=== PATIENT | male | born 1980 | race Caucasian/White ===

== ENCOUNTER → 2017-09-17 | Outpatient (CLI) | payer OTHER ==
[~2017-09-17] MED LIST: BECL0.3A INH; CLR10 PO; FLUT0.15 NAE; OMEP20TA PO
== END | disposition home or self-care (01) ==
LOC: C.PATHSPEC 17:41
PROVIDERS: ATTEND Urology
DX: R31.0 Gross hematuria (principal)

== ENCOUNTER 2021-01-24 09:23 | Inpatient (IN) ==
[2021-01-24] MEDS ORDERED: SODIUM CHLORIDE 0.9% 1000ML 1,000 ML IV STA (09:46)
--- NOTE | 2021-01-24 09:54 | Emergency Department Note ---
History of Present Illness General Chief complaint: Shortness of Breath/Dyspnea Stated complaint: COV+,SOB,FEVER,HEADACHE,DEHYDRATION Time Seen by Provider: 01/24/21 09:35 Source: patient Mode of arrival: ambulatory Limitations: no limitations History of Present Illness Maximum Pain Intensity: 8 This patient comes in with shortness of breath body aches headache weakness after being diagnosed with Covid 3 days ago. His symptoms started about 6 days ago. He works in the [employer] and he said multiple people there are sick with Covid .he was tested at [facility] 3 days ago and came back positive he continues to have a hacking cough he short of breath primarily with exertion he is been weak he has had no vomiting. He has had a headache no neck pain or stiffness no rash. He denies pulmonary issues but does have allergies he says and he has butyryl and montelukast listed as medications he has been on. Denies trauma or injury. He has not had the Covid vaccine. Home Medications Medication Instructions Recorded Confirmed Type albuterol sulfate 90 mcg/actuation 2 puffs INH Q4H PRN #8 gm 11/15/20 01/24/21 Rx aerosol inhaler losartan 50 mg tablet 50 mg PO QAM 11/15/20 01/24/21 History montelukast 10 mg tablet 10 mg PO HS 11/15/20 01/24/21 History pantoprazole 40 mg tablet,delayed 40 mg PO QAM 11/15/20 01/24/21 History release simvastatin 20 mg tablet 20 mg PO HS 11/15/20 01/24/21 History albuterol sulfate 0.63 mg/3 mL 0.63 mg INHALATION QID PRN 01/24/21 01/24/21 History solution for nebulization Allergies Allergy/AdvReac Type Severity Reaction Status Date / Time No Known Allergies Allergy Unverified 01/24/21 10:10 Past Med/Surg History Medical History (Updated 01/24/21 @ 14:42 by Andrea Dahl MD) Allergies GERD (gastroesophageal reflux disease) HTN (hypertension) Hyperlipidemia Social History Smoking Status: Never smoker Preferred Language: Tongan Feels Safe at Home: Yes Review of Systems A total of 10 systems reviewed and were otherwise negative Physical Exam Vital Signs Vital Signs - 24 hr 01/24/21 09:30 01/24/21 09:45 01/24/21 09:47 Temperature 38.7 C H Temperature Source Oral Pulse Rate 115 H 107 H 114 H Pulse Rate from SpO2 Sensor 114 H Respiratory Rate 20 22 18 Respiratory Effort / Characteristics Spontaneous Blood Pressure 118/83 124/79 Blood Pressure Mean 94 94 Blood Pressure Position Sitting Pulse Oximetry 89 L 92 92 Oxygen Delivery Method Room Air Nasal Cannula Nasal Cannula Oxygen Flow Rate 2 2 Sepsis Recent Fever Within 48 Hours Yes Sepsis New/Unexplained Change in Mental Status N/A Sepsis Action Taken by Nursing Physician Notified 01/24/21 10:00 01/24/21 10:15 01/24/21 10:30 Temperature Temperature Source Pulse Rate 107 H 107 H 109 H Pulse Rate from SpO2 Sensor 107 H 109 H Respiratory Rate 22 22 23 Respiratory Effort / Characteristics Blood Pressure 143/80 H 155/81 H Blood Pressure Mean 101 105 Blood Pressure Position Pulse Oximetry 96 96 97 Oxygen Delivery Method Nasal Cannula Nasal Cannula Nasal Cannula Oxygen Flow Rate 2.5 2.5 2.5 Sepsis Recent Fever Within 48 Hours Sepsis New/Unexplained Change in Mental Status Sepsis Action Taken by Nursing 01/24/21 11:00 01/24/21 12:45 01/24/21 13:00 Temperature Temperature Source Pulse Rate 103 H 109 H 99 H Pulse Rate from SpO2 Sensor 100 H 110 H 100 H Respiratory Rate 26 H 19 30 H Respiratory Effort / Characteristics Blood Pressure 131/90 142/75 H 119/76 Blood Pressure Mean 103 97 90 Blood Pressure Position Pulse Oximetry 95 93 95 Oxygen Delivery Method Nasal Cannula Nasal Cannula Nasal Cannula Oxygen Flow Rate 2 2 2 Sepsis Recent Fever Within 48 Hours Sepsis New/Unexplained Change in Mental Status Sepsis Action Taken by Nursing 01/24/21 13:15 01/24/21 13:30 01/24/21 13:45 Temperature Temperature Source Pulse Rate 104 H 104 H 101 H Pulse Rate from SpO2 Sensor 104 H 101 H 99 H Respiratory Rate 34 H 22 17 Respiratory Effort / Characteristics Blood Pressure 130/78 126/81 123/78 Blood Pressure Mean 95 96 93 Blood Pressure Position Pulse Oximetry 93 94 93 Oxygen Delivery Method Nasal Cannula Nasal Cannula Nasal Cannula Oxygen Flow Rate 2 2 2 Sepsis Recent Fever Within 48 Hours Sepsis New/Unexplained Change in Mental Status Sepsis Action Taken by Nursing General: Well developed well nourished middle-age male who appears in no acute distress, breathing comfortably on room air. Normal speech HEENT: Normal cephalic atraumatic. Pupils are equal round and reactive to lig ht. Extraocular movements are intact. Oropharynx is pink with moist mucous membranes. No swelling of the mouth lips or tongue. Neck: Supple with a midline trachea. No meningeal signs or stiffness, no JVD or bruits. No Stridor. Chest: Clear to auscultation bilaterally. No wheezes or rhonchi. No increased work of breathing. He has a dry hacking cough Heart: Regular rate and rhythm without murmurs or gallops. Abdomen: Soft nontender, nondistended without rebound guarding or rigidity. Extremities: No cyanosis clubbing or edema. No calf tenderness or assymetry Spine/Back. Non tender to palpation. No CVA tenderness Skin: Good turgor without rashes. Neurologic exam: Cranial nerves two through 12 are intact. Motor and sensation are intact and symmetrical throughout. Course Administered Medications Discontinued Medications Dexamethasone Sodium Phosphate (DexamethasonePf 10 Mg/Ml Vial) 6 mg IV NOW ONE Stop: 01/24/21 11:16 Last Admin: 01/24/21 11:20 Dose: 6 mg Documented by: [id number] Sodium Chloride (Nss 1000ml) 1,000 mls @ 999 mls/hr IV .Q1H1M STA Stop: 01/24/21 10:46 Last Infusion: 01/24/21 11:29 Dose: 0 mls/hr Documented by: [id number] Admin: 01/24/21 10:02 Dose: 999 mls/hr Documented by: [id number] Remdesivir 200 mg/ Sodium (Chloride) 250 mls @ 125 mls/hr IV ONE STA; Protocol Stop: 01/24/21 13:29 Last Admin: 01/24/21 12:44 Dose: 125 mls/hr Documented by: [id number] Ioversol (Optiray 320 125ml) 118 ml IV ONCE ONE Stop: 01/24/21 11:33 Last Admin: 01/24/21 11:33 Dose: 118 ml Documented by: [id number] Ketorolac Tromethamine (Ketorolac Tromethamine 15 Mg/Ml Vial) 10 mg IV NOW ONE Stop: 01/24/21 10:51 Last Admin: 01/24/21 11:18 Dose: 10 mg Documented by: [id number] Potassium Chloride (Potassium Chloride Crtab 20 Meq Tabcr) 40 meq PO NOW STA Stop: 01/24/21 12:08 Last Admin: 01/24/21 12:53 Dose: 40 meq Documented by: [id number] Medical Decision Making Differential Diagnosis Covid, pneumonia, sepsis, CHF, electrolyte or metabolic abnormality, hypoxia Medical Records Attestation: I reviewed the patient's medical records. Home Medications Current Medication List: was personally reviewed by me Laboratory Data Attestation: I reviewed the patient's lab results. Result diagrams: 01/24/21 09:50 01/24/21 09:50 Lab Results 01/24/21 01/24/21 01/24/21 Range/Units 09:50 09:50 09:50 WBC 4.10 L (4.8-10.8) K/uL RBC 5.08 (4.7-6.1) M/uL Hgb 14.7 (14.0-18.0) g/dL Hct 43.8 (42-52) % MCV 86.2 (80-100) fL MCH 28.9 (25-34) pg MCHC 33.6 (32-36) g/dL RDW Std Deviation 44.2 (36.4-46.3) fL RDW Coeff of Ava 13.9 (11.5-14.5) % Plt Count 130 (130-400) K/uL MPV 10.3 (7.4-10.4) fL Immature Gran % (Auto) 0.5 % Neut % (Auto) 80.9 % Lymph % (Auto) 13.7 % Clayton % (Auto) 4.9 % Eos % (Auto) 0.0 % Baso % (Auto) 0.0 % Neut # (Auto) 3.32 (1.4-6.5) K/uL Lymph # (Auto) 0.56 L (1.2-3.4) K/uL Clayton # (Auto) 0.20 (0.11-0.59) K/uL Eos # (Auto) 0.00 (0-0.5) K/uL Baso # (Auto) 0.00 (0-0.2) K/uL Immature Gran # (Auto) 0.02 (0.00-0.02) K/uL PT 9.9 (9.0-12.0) Seconds INR 1.0 (0.9-1.1) APTT 27.1 (21.0-31.0) Seconds PTT Ratio 1.0 D-Dimer 1650 H* (0-500) ug/L FEU Sodium 139 (136-145) mmol/L Potassium 3.4 L (3.5-5.1) mmol/L Chloride 104 (98-107) mmol/L Carbon Dioxide 29 (21-32) mmol/L Anion Gap 6.0 (3-11) BUN 14 (7-18) mg/dl Creatinine 1.27 (0.6-1.4) mg/dl Est Cr Clr Drug Dosing 95.8 ml/min Est GFR ( Amer) 80.8 ml/min Est GFR (Non-Af Amer) 69.7 ml/min BUN/Creatinine Ratio 10.8 (10-20) Glucose 123 H (70-99) mg/dl Calcium 8.2 L (8.5-10.1) mg/dl Ferritin (8-388) ng/ml Total Bilirubin 0.7 (0.2-1) mg/dl AST 66 H (15-37) U/L ALT 37 (12-78) U/L Alkaline Phosphatase 90 (45-117) U/L Lactate Dehydrogenase (87-241) U/L Troponin I < 0.015 (0-0.045) ng/ml C-Reactive Protein (0-0.29) mg/dl Total Protein 7.0 (6.4-8.2) gm/dl Albumin 2.9 L (3.4-5.0) gm/dl Globulin 4.1 H (2.5-4.0) gm/dl Albumin/Globulin Ratio 0.7 L (0.9-2) Lipase 275 (73-393) U/L Procalcitonin (0-0.5) ng/ml COVID-19 Eval Order SARS-CoV-2 (PCR) (Negative) 01/24/21 01/24/21 01/24/21 Range/Units 09:50 09:50 11:26 WBC (4.8-10.8) K/uL RBC (4.7-6.1) M/uL Hgb (14.0-18.0) g/dL Hct (42-52) % MCV (80-100) fL MCH (25-34) pg MCHC (32-36) g/dL RDW Std Deviation (36.4-46.3) fL RDW Coeff of Ava (11.5-14.5) % Plt Count (130-400) K/uL MPV (7.4-10.4) fL Immature Gran % (Auto) % Neut % (Auto) % Lymph % (Auto) % Clayton % (Auto) % Eos % (Auto) % Baso % (Auto) % Neut # (Auto) (1.4-6.5) K/uL Lymph # (Auto) (1.2-3.4) K/uL Clayton # (Auto) (0.11-0.59) K/uL Eos # (Auto) (0-0.5) K/uL Baso # (Auto) (0-0.2) K/uL Immature Gran # (Auto) (0.00-0.02) K/uL PT (9.0-12.0) Seconds INR (0.9-1.1) APTT (21.0-31.0) Seconds PTT Ratio D-Dimer (0-500) ug/L FEU Sodium (136-145) mmol/L Potassium (3.5-5.1) mmol/L Chloride (98-107) mmol/L Carbon Dioxide (21-32) mmol/L Anion Gap (3-11) BUN (7-18) mg/dl Creatinine (0.6-1.4) mg/dl Est Cr Clr Drug Dosing ml/min Est GFR ( Amer) ml/min Est GFR (Non-Af Amer) ml/min BUN/Creatinine Ratio (10-20) Glucose (70-99) mg/dl Calcium (8.5-10.1) mg/dl Ferritin 4479.4 H (8-388) ng/ml Total Bilirubin (0.2-1) mg/dl AST (15-37) U/L ALT (12-78) U/L Alkaline Phosphatase (45-117) U/L Lactate Dehydrogenase (87-241) U/L Troponin I (0-0.045) ng/ml C-Reactive Protein 11.30 H (0-0.29) mg/dl Total Protein (6.4-8.2) gm/dl Albumin (3.4-5.0) gm/dl Globulin (2.5-4.0) gm/dl Albumin/Globulin Ratio (0.9-2) Lipase (73-393) U/L Procalcitonin 0.14 (0-0.5) ng/ml COVID-19 Eval Order Covid19 at [facility] SARS-CoV-2 (PCR) (Negative) 01/24/21 01/24/21 Range/Units 11:26 13:00 WBC (4.8-10.8) K/uL RBC (4.7-6.1) M/uL Hgb (14.0-18.0) g/dL Hct (42-52) % MCV (80-100) fL MCH (25-34) pg MCHC (32-36) g/dL RDW Std Deviation (36.4-46.3) fL RDW Coeff of Ava (11.5-14.5) % Plt Count (130-400) K/uL MPV (7.4-10.4) fL Immature Gran % (Auto) % Neut % (Auto) % Lymph % (Auto) % Clayton % (Auto) % Eos % (Auto) % Baso % (Auto) % Neut # (Auto) (1.4-6.5) K/uL Lymph # (Auto) (1.2-3.4) K/uL Clayton # (Auto) (0.11-0.59) K/uL Eos # (Auto) (0-0.5) K/uL Baso # (Auto) (0-0.2) K/uL Immature Gran # (Auto) (0.00-0.02) K/uL PT (9.0-12.0) Seconds INR (0.9-1.1) APTT (21.0-31.0) Seconds PTT Ratio D-Dimer (0-500) ug/L FEU Sodium (136-145) mmol/L Potassium (3.5-5.1) mmol/L Chloride (98-107) mmol/L Carbon Dioxide (21-32) mmol/L Anion Gap (3-11) BUN (7-18) mg/dl Creatinine (0.6-1.4) mg/dl Est Cr Clr Drug Dosing ml/min Est GFR ( Amer) ml/min Est GFR (Non-Af Amer) ml/min BUN/Creatinine Ratio (10-20) Glucose (70-99) mg/dl Calcium (8.5-10.1) mg/dl Ferritin (8-388) ng/ml Total Bilirubin (0.2-1) mg/dl AST (15-37) U/L ALT (12-78) U/L Alkaline Phosphatase (45-117) U/L Lactate Dehydrogenase 522 H (87-241) U/L Troponin I (0-0.045) ng/ml C-Reactive Protein (0-0.29) mg/dl Total Protein (6.4-8.2) gm/dl Albumin (3.4-5.0) gm/dl Globulin (2.5-4.0) gm/dl Albumin/Globulin Ratio (0.9-2) Lipase (73-393) U/L Procalcitonin (0-0.5) ng/ml COVID-19 Eval Order SARS-CoV-2 (PCR) POSITIVE A* (Negative) Imaging Data Attestation: I personally reviewed and interpreted this imaging study as follows: My Impression: Chest x-rayhe has bilateral haziness in the bases consistent with Covid infection Radiologist's Impression: Chest X-Ray 01/24/21 09:41 XR chest 1V portable INDICATION: MN ^SOB. TECHNIQUE: Single frontal radiograph of the chest was obtained. Comparison: Comparison is made to chest one view 11/15/2020 FINDINGS: No lines and tubes are seen. The cardiomediastinal silhouette is normal. Lungs are underinflated. Diffuse airspace opacities are seen. No evidence of pleural effusion or pneumothorax. IMPRESSION: Diffuse bilateral airspace opacities which are favored to represent pneumonia with or without aspiration/atelectasis. ACT 112: Negative or not required by law. Electronically signed by: Diaz Rodriguez M.D. 01/24/2021 10:26 AM Chest CTA 01/24/21 10:52 CT angio chest PE protocol INDICATION: MN ^A10 +COVID 01/21 ^PE. TECHNIQUE: Multidetector row helical CT of the chest was performed. Coronal and sagittal reformations were obtained. Automated dose lowering techniques and/or adjustment according to patient size were utilized for this exam. Comparison: Comparison is made to CT chest PE protocol 11/15/2020 FINDINGS: Lungs and pleura: Interval development of diffuse groundglass and consolidative opacities throughout the lung in this patient with viral pneumonia. Heart and pericardium: Heart size is normal. No pericardial effusion. Vessels: No evidence of pulmonary embolism. Mediastinum and marily: Unremarkable. Chest wall and lower neck: Unremarkable. Abdomen: Unremarkable. Bones: Unremarkable. IMPRESSION: Bilateral groundglass and consolidative opacities compatible with history of viral pneumonia. No evidence of pulmonary embolism. ACT 112: Negative or not required by law. Electronically signed by: Diaz Rodriguez M.D. 01/24/2021 12:00 PM ECG Data Attestation: I personally reviewed and interpreted this ECG as follows: Indication: + SOB/dyspnea Rate (beats per minute): 116 Rhythm: + sinus tachycardia ECG Intervals/blocks: + Normal QRS, + Normal QT and + Normal [place] ECG [place]: + Normal ECG ST segments: + Normal ST segments ECG Findings: no PACs or no PVCs Comparison ECG Date: from (11/15/20) Change: no significant change MDM Narrative This patient comes in after being diagnosed with Covid 3 days ago he week he has a headache and shortness of breath he is hypoxemic with 88% on room air he was placed on oxygen. IV asked established and he was hydrated with IV normal saline. He was placed on a shipping and receiving assistant. EKG and multiple blood testing was obtained including D-dimer. He was reassessed frequently. Chest x-ray shows bilateral infiltrates consistent with Covid. Covid testing was positive here as well. He has no significant electrolyte or metabolic abnormalities. There is nothing to suggest a bacterial infection. D-dimer was elevated and in light of this I did do a chest CT. There is no evidence of PE. There are findings cons istent with Covid with groundglass. Given his hypoxemia I do think he needs to be admitted for further treatment and evaluation. I have consulted the [facility] hospitalist to see him for these measures Continous shipping and receiving assistant: Orders placed in EMR for continuous shipping and receiving assistant. Upon my interpretation he was noted to be in sinus tachycardia with a rate of 115 Impression & Plan COVID, Hypoxemia, Dehydration, Elevated d-dimer Discharge Plan Visit Data Chief Complaint: Shortness of Breath/Dyspnea Stated Complaint: COV+,SOB,FEVER,HEADACHE,DEHYDRATION ED Provider: Andrea Dahl Discharge Problem: COVID, Hypoxemia, Dehydration, Elevated d-dimer Forms Stand Alone Forms: My [facility] Prescriptions Prescriptions: No Action losartan 50 mg tablet 50 mg PO QAM RF: 0 pantoprazole 40 mg tablet,delayed release (DR/EC) 40 mg PO QAM RF: 0 simvastatin 20 mg tablet 20 mg PO HS RF: 0 montelukast 10 mg tablet 10 mg PO HS RF: 0 albuterol sulfate 90 mcg/actuation HFA aerosol inhaler 2 puffs INH Q4H PRN (Reason: shortness of breath or wheezing) Qty: 8 RF: 0 albuterol sulfate 0.63 mg/3 mL Solution For Nebulization 0.63 mg INHALATION QID PRN (Reason: SOB) RF: 0 Referrals Referrals: Guero Huerta MD [Primary Care Provider] -
[2021-01-24 10:15] LABS: Hematocrit (blood only) 43.8 % (42-52); Hemoglobin 14.7 g/dL (14.0-18.0); Immature Granulocytes # (auto) 0.02 K/uL (0.00-0.02); Immature Granulocytes % (auto) 0.5 %; Lymphocytes # (auto) 0.56 K/uL (1.2-3.4); Lymphocytes % (auto) 13.7 %; Mean Corpuscular Hemoglobin 28.9 pg (25-34); Mean Corpuscular Hgb Conc 33.6 g/dL (32-36); Mean Corpuscular Volume 86.2 fL (80-100); Mean Platelet Volume 10.3 fL (7.4-10.4); Monocytes % (auto) 4.9 %; Neutrophils # (auto) 3.32 K/uL (1.4-6.5); Neutrophils % (auto) 80.9 %; Platelet Count 130 K/uL (130-400); RDW Coefficient of Variation 13.9 % (11.5-14.5); RDW Standard Deviation 44.2 fL (36.4-46.3); Red Blood Count 5.08 M/uL (4.7-6.1)
--- NOTE | 2021-01-24 10:27 | XRay Report ---
XR chest 1V portable INDICATION: MN ^SOB. TECHNIQUE: Single frontal radiograph of the chest was obtained. Comparison: Comparison is made to chest one view 11/15/2020 FINDINGS: No lines and tubes are seen. The cardiomediastinal silhouette is normal. Lungs are underinflated. Dif fuse airspace opacities are seen. No evidence of pleural effusion or pneumothorax. IMPRESSION: Diffuse bilateral airspace opacities which are favored to represent pneumonia with or without aspirat ion/atelectasis. ACT 112: Negative or not required by law. Electronically signed by: Diaz Rodriguez M.D. 01/24/2021 10:26 AM
[2021-01-24 10:29] LABS: Partial Thromboplastin Time 27.1 Seconds (21.0-31.0); Prothrombin Time 9.9 Seconds (9.0-12.0)
[2021-01-24 10:32] LABS: D Dimer 1650 ug/L FEU (0-500)
[2021-01-24 10:38] LABS: Alanine Aminotransferase 37 U/L (12-78); Albumin Level 2.9 gm/dl (3.4-5.0); Aspartate Aminotransferase 66 U/L (15-37); BUN Creatinine Ratio 10.8 (10-20); Blood Urea Nitrogen 14 mg/dl (7-18); Calcium 8.2 mg/dl (8.5-10.1); Carbon Dioxide 29 mmol/L (21-32); Chloride 104 mmol/L (98-107); Creatinine Clr Calc Pharmacy 95.8 ml/min; Est GFR (African American) 80.8 ml/min; Est GFR (Non-African American) 69.7 ml/min; Glucose 123 mg/dl (70-99); Lipase 275 U/L (73-393); Potassium 3.4 mmol/L (3.5-5.1); Sodium 139 mmol/L (136-145)
[2021-01-24 10:43] LABS: Albumin Globulin Ratio 0.7 (0.9-2); Alkaline Phosphatase 90 U/L (45-117); Bilirubin,Total 0.7 mg/dl (0.2-1); Globulin 4.1 gm/dl (2.5-4.0); Troponin I < 0.015 ng/ml (0-0.045)
[2021-01-24] MEDS ORDERED: KETOROLAC TROMETHAMINE 15 MG/ML VIAL IV ONE (10:50)
[2021-01-24] MEDS ORDERED: dexAMETHasone**PF** 10 MG/ML VIAL IV ONE (11:15)
--- NOTE | 2021-01-24 11:26 | History & Physical Report ---
Date of Service January 24, 2021 Assessment & Plan (1) COVID: (2) Hypoxemia: (3) Acute respiratory failure with hypoxia: Plan: - COVID-19 positive on Jan 21, repeat test here pending - Check Procalcitonin, LDH, ferritin, CRP, and trend troponin (initial negative) - Lymphocytes 0.56, neutrophils 3.32, elevated d dimer - CXR reviewed: Diffuse bilateral airspace opacities which are favored to represent pneumonia with or without aspiration/atelectasis. - CTA : Bilateral groundglass and consolidative opacities compatible with history of viral pneumonia. No evidence of pulmonary embolism. - O2 sats 95% on 2 L o2, does not require supplemental O2 at baseline - Prone pt as tolerated - WBC 4.1 - Remdesivir 200 mg IV x 1 then 100 mg daily thereafter, decadron 6 mg IV daily. If pt needs convalescent plasma then will ask attending to obtain consent. -Follow ast and alt with am labs while on remdesivir (4) HTN (hypertension): Plan: - Cont losartan 50 mg daily, bp stable (5) Hyperlipidemia: Plan: - Cont simvastatin (6) GERD (gastroesophageal reflux disease): Plan: -Continue protonix daily (7) Hypokalemia: Plan: - K 3.4, will replace with 40 meq po now. Follow with am labs (8) Obesity (BMI 30-39.9): Plan: - BMI of 39.7, diet and exercise to be encouraged upon discharge - HH diet DVT PPx - teds, scds, lovenox subq daily to reduce employee exposure, monitor Cr./BUN CODE: Full code Dispo: From home, likely to remain in the hospital x 1-2 days History of Present Illness Primary Care Provider: Guero Huerta MD This is a 40 yo F with PMHx of HTN, HLD, obesity with BMI of 39.7, GERD, seasonal allergies who presents to the ER with multiple respiratory symptoms since Jan 18. 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 He did not get vaccinated for COVID-19. Symptoms include worsening shortness of breath, fever 101-103.7 with max 2 days ago, sweats, chills, headache, and body aches. He was taking ibuprofen to attempt to break the fever but wasn't helping. Poor appetite, unable to tolerate liquids, is consuming maybe 15-20 oz daily. He admits to loss of taste and smell. Has been nauseous without vomiting and c/o diarrhea nearly daily. Pt reports chest pain at baseline and has been seen in the hospital before for coughing from allergies and causes his ribs to be out of place. He denies cardiac heart issues in the past. He reports presenting as an outpatient [place] location 3 days ago and rapid Covid test was positive on the . Weighs 270 at baseline. Patient is hypoxic with O2 sats at 88% on room air, elevated D-dimer, febrile with a T-max of 38.7. He also notes his is here in the ER for same issues. Allergies Allergy/AdvReac Type Severity Reaction Status Date / Time No Known Allergies Allergy Unverified 01/24/21 10:10 Home Medications Medication Instructions Recorded Confirmed Type albuterol sulfate 90 mcg/actuation 2 puffs INH Q4H PRN #8 gm 11/15/20 01/24/21 Rx aerosol inhaler losartan 50 mg tablet 50 mg PO QAM 11/15/20 01/24/21 History montelukast 10 mg tablet 10 mg PO HS 11/15/20 01/24/21 History pantoprazole 40 mg tablet,delayed 40 mg PO QAM 11/15/20 01/24/21 History release simvastatin 20 mg tablet 20 mg PO HS 11/15/20 01/24/21 History albuterol sulfate 0.63 mg/3 mL 0.63 mg INHALATION QID PRN 01/24/21 01/24/21 History solution for nebulization Past Med/Surg History Medical History (Updated 01/24/21 @ 14:42 by Andrea Dahl MD) Allergies GERD (gastroesophageal reflux disease) HTN (hypertension) Hyperlipidemia Social History Smoking Status: Never smoker Preferred Language: Uruguayan Feels Safe at Home: Yes Review of Systems Review of Systems: Constitutional: As per HPI, + fever, sweats and chills Eyes: No diplopia, no worsening or blurred vision ENT: normal hearing, no trouble swallowing, + loss of smell and taste Respiratory: + cough, sputum, + dyspnea on exertion Cardiovascular: + chest pain, no tightness or palpitations Abdomen: No pain, +nausea, no vomiting, + diarrhea, no constipation Musculoskeletal: + diffuse body aches and joint pain, no calf pain, no swelling Neurologic: No weakness, numbness/tingling, or balance problems Psychiatric: No anxiety or depression Skin: No rash or itch Physical Exam Physical Exam: Please refer to attending addendum as I did not see the patient in person due to COVID-19 positive. Results & Data Results & Data ([facility]) Vital Signs (Past 12 Hours) Vital Signs Temp Pulse Resp BP Pulse Ox 01/24/21 10:30 109 H 23 155/81 H 97 01/24/21 10:15 107 H 22 96 01/24/21 10:00 107 H 22 143/80 H 96 01/24/21 09:47 114 H 18 124/79 92 01/24/21 09:45 107 H 22 92 01/24/21 09:30 38.7 C H 115 H 20 118/83 89 L ECG Additional Comments: 24-JAN-2021 09:41:58 [facility]-EDSTAT ROUTINE RETRIEVAL Sinus tachycardia Possible Left atrial enlargement Borderline ECG When compared with ECG of 15-NOV-2020 12:31, No significant change was found 25mm/s 10mm/mV 150Hz 9.0.9 12SL 241 ERNESTO: 16 Referred by: ED Unconfirmed Vent. rate 116 BPM MA interval 162 ms QRS duration 90 ms QT/QTc 308/428 ms Code Status & VTE Plan Code Status Full code Supervising Physician Co-Signing Physician Notes 40-year-old male with PMH of HTN, HLD, obesity, GERD, seasonal allergies presents to the ER 01/24 with respiratory signs and symptoms [shortness of breath, intermittent fever, sweats, chills, headaches, body aches] since January 18, he was tested positive on January 29. Is being managed for acute hypoxic respiratory failure secondary to pneumonia due to COVID-19 virus. Remdesivir, dexamethasone, pantoprazole for history of GERD. Continue with supplemental oxygen. Upon examination: GENERAL: Alert and oriented x3. NAD, on 2L. HEENT: No pallor, no icterus. Pupils equal, round and reactive to light. Oral mucosa moist. NECK: No JVD, no neck masses. HEART: S1 and S2 heard. Regular rate and rhythm. No murmur, no gallop. RESPIRATORY SYSTEM: Normal AP diameter. No accessory muscle use. No wheezing, diffuse and bilateral crackles with diminished breath sounds. ABDOMEN: Soft, bowel sounds present, nontender, no distention. CENTRAL NERVOUS SYSTEM: Alert and oriented x3. No facial droop. Speech is clear. Obeys simple commands. Moves extremities. EXTREMITIES: No edema, no erythema seen. I have seen and examined the patient and have discussed the case with the provider above. I agree with the assessment and plan as stated.
[2021-01-24] MEDS ORDERED: REMDESIVIR 200 MG in SODIUM CHLORIDE 0.9% 210 ML IV STA (11:30)
[2021-01-24] MEDS ORDERED: OPTIRAY 320 125ml IV ONE (11:32)
--- NOTE | 2021-01-24 12:01 | CT Scan Report ---
CT angio chest PE protocol INDICATION: MN ^A10 +COVID 01/21 ^PE. TECHNIQUE: Multidetector row helical CT of the chest was performed. Coronal and sagittal reformations were obtained. Automated dose lowering techniques and/or adjustment according to patient size were u tilized for this exam. Comparison: Comparison is made to CT chest PE protocol 11/15/2020 FINDINGS: Lungs and pleura: Interval development of diffuse groundglass and consolidative opacities throughout the lung in this patient with viral pneumonia. Heart and pericardium: Heart size is normal. No pericardial effusion. Vessels: No evidence of pulmonary embolism. Mediastinum and marily: Unremarkable. Chest wall and lower neck: Unremarkable. Abdomen: Unremarkable. Bones: Unremarkable. IMPRESSION: Bilateral groundglass and consolidative opacities compatible with history of viral pneumonia. No evid ence of pulmonary embolism. ACT 112: Negative or not required by law. Electronically signed by: Diaz Rodriguez M.D. 01/24/2021 12:00 PM
[2021-01-24] MEDS ORDERED: POTASSIUM CHLORIDE CRTAB 20 MEQ TABCR PO STA (12:07)
--- NOTE | 2021-01-24 13:03 | Electrocardiogram Report ---
Test Reason : Blood Pressure : / mmHG Vent. Rate : 116 BPM Atrial Rate : 116 BPM P-R Int : 162 ms QRS Dur : 090 ms QT Int : 308 ms P-R-T Axes : 025 040 018 degrees QTc Int : 428 ms Sinus tachycardia Left atrial enlargement Borderline ECG When compared with ECG of 15-NOV-2020 12:31, No significant change was found Confirmed by Catracho Cotton ([id number]) on 01/24/2021 1:03:15 PM Referred By: ED Confirmed By:Catracho Cotton
[2021-01-24 13:32] LABS: C Reactive Protein 11.3 mg/dl (0-0.29); Ferritin 4479.4 ng/ml (8-388)
[2021-01-24] MEDS ORDERED: ALBUTEROL HFA 8 GM INHALER INH PRN (20:43)
[2021-01-24] MEDS ORDERED: ONDANSETRON INJ 2 MG/ML 2 ML VIAL IV PRN (20:43)
[2021-01-24] MEDS: SIMVASTATIN 20 MG TAB PO SCH (21:30)
[2021-01-24] MEDS: MONTELUKAST SODIUM 10 MG TABLET PO SCH (21:30)
[2021-01-24] MEDS: guaiFENesin 600 MG TABCR PO SCH (21:30)
[2021-01-25] MEDS: ALBUT/IPRATROP 3MG/0.5MG NEB 3 ML VIAL NEB SCH ×8 (00:30→23:31)
[2021-01-25] MEDS ORDERED: dexAMETHasone 6 MG in SYRINGE 0 ML IV SCH ×2 (05:30→09:00)
[2021-01-25] MEDS ORDERED: MAGNESIUM SULFATE / D5W 1 GM/100 ML BAG IV ONE (05:55)
[2021-01-25 06:35] LABS: Hematocrit (blood only) 43.5 % (42-52); Hemoglobin 14.1 g/dL (14.0-18.0); Immature Granulocytes # (auto) 0.01 K/uL (0.00-0.02); Immature Granulocytes % (auto) 0.3 %; Lymphocytes # (auto) 0.84 K/uL (1.2-3.4); Lymphocytes % (auto) 21.6 %; Mean Corpuscular Hemoglobin 29.1 pg (25-34); Mean Corpuscular Hgb Conc 32.4 g/dL (32-36); Mean Corpuscular Volume 89.7 fL (80-100); Mean Platelet Volume 10.4 fL (7.4-10.4); Monocytes # (auto) 0.35 K/uL (0.11-0.59); Neutrophils # (auto) 2.69 K/uL (1.4-6.5); Neutrophils % (auto) 69.1 %; Platelet Count 182 K/uL (130-400); RDW Coefficient of Variation 14.1 % (11.5-14.5); RDW Standard Deviation 46.3 fL (36.4-46.3); Red Blood Count 4.85 M/uL (4.7-6.1); White Blood Count 3.89 K/uL (4.8-10.8)
[2021-01-25 06:42] LABS: Base Excess ABG -1.2 mEq/L (-9-1.8); HCO3 ABG 22 mmol/L (19-24); Oxygen Saturation ABG 94.2 % (90-95); PCO2 ABG 31 mmHg (35-46); PO2 ABG 64 mmHg (80-95); pH ABG 7.46 (7.35-7.45)
[2021-01-25 06:58] LABS: Allen Test POS (Pos)
[2021-01-25 07:05] LABS: Albumin Level 2.6 gm/dl (3.4-5.0); BUN Creatinine Ratio 15.8 (10-20); Calcium 8.3 mg/dl (8.5-10.1); Creatinine Clr Calc Pharmacy 108.2 ml/min; Est GFR (African American) 96.1 ml/min; Est GFR (Non-African American) 82.9 ml/min; Magnesium 2.5 mg/dl (1.8-2.4); Potassium 3.5 mmol/L (3.5-5.1)
[2021-01-25 07:08] LABS: Albumin Globulin Ratio 0.7 (0.9-2); Bilirubin,Total 0.6 mg/dl (0.2-1); Globulin 3.9 gm/dl (2.5-4.0); Total Protein 6.5 gm/dl (6.4-8.2)
--- NOTE | 2021-01-25 08:32 | XRay Report ---
XR chest 1V portable CLINICAL HISTORY: low o2 COMPARISON STUDY: Chest radiograph and chest CT January 24, 2021. FINDINGS: There is no pneumothorax or pleural effusion. Extensive bilateral airspace opacities are si milar to prior chest radiograph and chest CT of January 24, 2021. Cardiomediastinal silhouette is s table. IMPRESSION: No significant change in extensive bilateral airspace opacities suggestive of viral pneu monia. ACT 112: Negative or not required by law. Electronically signed by: Jeffery Miguel M.D. 01/25/2021 8:31 AM
[2021-01-25] MEDS ORDERED: FUROSEMIDE 20 MG in SYRINGE 0 ML IV ONE (08:45)
[2021-01-25] MEDS ORDERED: FUROSEMIDE 40 MG/4 ML VIAL IV ONE (09:00)
[2021-01-25] MEDS: ENOXAPARIN INJ 40 MG/0.4 ML SYR SQ SCH (09:26)
[2021-01-25] MEDS: PANTOprazole 40 MG TAB PO SCH (09:27)
[2021-01-25] MEDS: guaiFENesin 600 MG TABCR PO SCH ×2 (09:27→21:21)
[2021-01-25] MEDS: LOSARTAN POTASSIUM 50 MG TAB PO SCH (09:27)
--- NOTE | 2021-01-25 09:58 | Pulmonary Consultation ---
Date of Consultation January 25, 2021 Assessment & Plan (1) Acute respiratory failure with hypoxia: (2) Multifocal pneumonia: (3) Pneumonia due to 2019-nCoV: (4) Obesity (BMI 30-39.9): CT chest 01/24/2021 personally reviewed: Patchy groundglass opacities appreciated diffusely upper and lower lobes Minimal mediastinal adenopathy likely reactive --Acute hypoxic respiratory failure Secondary to multilobar COVID-19 pneumonia COVID-19 PCR positive CRP 11.3 Procalcitonin 0.14 Continue with O2 supplementation to keep oxygen saturation between 90-92%. Awake proning will be helpful Continue with incentive spirometry Continue with flutter valve. Recommend patient to be kept euvolemic to negative balance --Probable CR Trial of CPAP nightly and as needed shortness of breath Plan: Give the patient negative balance. Patient was given 20 mg of Lasix today. Patient is a candidate for Tocilizumab but we do not have enough dosage in the hospital right now Given the morbid obesity I think patient will benefit from CPAP if he is able to tolerate it would recommend using it nightly and as needed shortness of breath. Would recommend to start at 6 cm H2O and gradually increase to 10 by increments of 2. Awake proning will be beneficial Increase dexamethasone to 10 mg on a daily basis Please note the above document was generated using voice recognition software. It may contain grammatical, syntax or spelling errors.Any formal questions or concerns about the content, text or information contained within the body of this dictation should be directly addressed to the provider for clarification. 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 He and his approximately twenty colleagues tested positive. His is also positive but she is at home. Patient is unvaccinated. At the time of examination patient was on 35 L, 65% saturating 93-94%. Talking in full sentences, not in any acute distress He has been using incentive spirometry and going up to thousand ml Denies any nausea vomiting Fair appetite Has pain proning at night Does complain of some chest pain when he coughs. Has been using flutter valve as well as bringing up clear phlegm. No hemoptysis. Social history: Non-smoker, denies any illicit drug use. No weightbearing No personal or family history of asthma Allergies Allergy/AdvReac Type Severity Reaction Status Date / Time No Known Allergies Allergy Unverified 01/24/21 10:10 Home Medications Medication Instructions Recorded Confirmed Type albuterol sulfate 90 mcg/actuation 2 puffs INH Q4H PRN #8 gm 11/15/20 01/24/21 Rx aerosol inhaler losartan 50 mg tablet 50 mg PO QAM 11/15/20 01/24/21 History montelukast 10 mg tablet 10 mg PO HS 11/15/20 01/24/21 History pantoprazole 40 mg tablet,delayed 40 mg PO QAM 11/15/20 01/24/21 History release simvastatin 20 mg tablet 20 mg PO HS 11/15/20 01/24/21 History albuterol sulfate 0.63 mg/3 mL 0.63 mg INHALATION QID PRN 01/24/21 01/24/21 History solution for nebulization Patient History Medical History (Updated 01/25/21 @ 12:48 by Jazmyne Aj MD) Allergies GERD (gastroesophageal reflux disease) HTN (hypertension) Hyperlipidemia Social History Smoking Status: Never smoker Second Hand Exposure: No; Do You Dip or Chew Tobacco: No; Tobacco Cessation Education Requested by Patient: No Hx Alcohol Use: Yes Alcohol type: beer and hard liquor Hx Substance Use: No Preferred Language: Bulgarian Communication Ability: Effective Cold Roll Operator Required: No Beliefs That Will Affect Care: None marital status: Current Living Situation: Spouse How many Children do You have: 1 Other Information That Helps Us Care for You: No Feels Safe at Home: Yes Safety Concerns: Feels Safe At This Time Assistive Devices: None Review of Systems Review of Systems: All systems reviewed & are unremarkable except as noted in HPI & below Physical Exam Physical Exam: Constitutional: No acute distress HEENT: EOMI, PERRLA Respiratory system: Decreased air entry bilaterally, no wheeze, rhonchi, positive crackles bilaterally CVS: S1-S2 positive, no murmurs or gallops Abdomen: Soft, nontender, nondistended, positive bowel sounds x4 Extremities: +2 pulses bilaterally radialis/ dorsalis pedis, no cyanosis, no edema Neuro: Awake alert oriented x3 Psych: Normal mood and affect G/U: No [place] Skin: no rashes, warm and dry Lymphatic: no cervical or axillary lymphadenopathy Results & Data Results & Data ([facility]) Vital Signs (Past 12 Hours) Vital Signs Temp Pulse Pulse Pulse Resp BP Pulse Ox 01/25/21 08:16 86 19 95 01/25/21 07:57 36.8 C 94 H 22 132/76 94 01/25/21 06:12 36.8 C 52 L 16 131/78 86 L 01/25/21 05:57 104 H 28 H 90 01/25/21 04:41 80 16 94 01/25/21 03:28 01/25/21 01:37 36.7 C 16 108/67 90 01/25/21 00:30 87 20 93 01/25/21 00:00 82 Pulse Ox 01/25/21 08:16 01/25/21 07:57 01/25/21 06:12 01/25/21 05:57 01/25/21 04:41 01/25/21 03:28 93 01/25/21 01:37 01/25/21 00:30 01/25/21 00:00 01/25/21 06:14 01/25/21 06:14 PG Care Time/CCT Total # of Minutes Spent Total Time Spent with Patient: Total time spent is greater than 50% in coordination of care (as documented) at patient's floor/unit and/or counseling patient: Coding Level of Care Code 98818 Inpt Consult Level 5 Diagnoses Acute respiratory failure with hypoxia J96.01 Multifocal pneumonia J18.9 Pneumonia due to 2019-nCoV U07.1; J12.82 Obesity (BMI 30-39.9) E66.9
[2021-01-25] MEDS: REMDESIVIR 100 MG in SODIUM CHLORIDE 0.9% 230 ML IV SCH (12:10)
[2021-01-25] MEDS: SODIUM CHLORIDE 0.9% 10ML FLUSH IV SCH (12:11)
[2021-01-25] MEDS ORDERED: dexAMETHasone 4 MG in SYRINGE 0 ML IV ONE (13:30)
--- NOTE | 2021-01-25 17:03 | Hospitalist Progress Note ---
Date of Service January 25, 2021 Assessment & Plan (1) Acute respiratory failure with hypoxia: (2) Pneumonia due to 2019-nCoV: (3) Obesity (BMI 30-39.9): (4) GERD (gastroesophageal reflux disease): Plan: 40-year-old male with PMH of HTN, HLD, obesity, GERD, seasonal allergies presents to the ER 01/24 with respiratory signs and symptoms [shortness of breath, intermittent fever, sweats, chills, headaches, body aches] since January 18, he was tested positive on January 29. Is being managed for acute hypoxic respiratory failure secondary to pneumonia due to COVID-19 virus. #. COVID: #. Acute hypoxic respiratory failure COVID-19 positive on Jan 21, repeat test here positive Leukopenia, pro-Jaime negative, no source of bacterial infection at present AST minimally elevated at 63, other liver enzymes WNL, LDH elevated at 522, CRP 11.3, ferritin 4479.4, D-dimer 1650 Trend Covid markers every other day Admitting CXR: Diffuse bilateral airspace opacities which are favored to represent pneumonia with or without aspiration/atelectasis. Admitting CTA CTA : Bilateral groundglass and consolidative opacities compatible with history of viral pneumonia. No evidence of pulmonary embolism. Patient was on 2 to 3 L nasal cannula oxygen at presentation, requiring up to 40 L oxygen currently. Prone as able, continue with flutter valve/incentive spirometry/nebulization/remdesivir 01/24/dexamethasone 01/24/daily lab monitoring/clinical monitoring. Lasix as needed to keep patient on the dry side. 20 mg IV Lasix given today. Monitor I's and O's. Pulmonology on board: Recommending nightly CPAP and as needed for SOB. Increase Dexilant to 10 mg daily. #. HTN (hypertension): - Cont losartan 50 mg daily, bp stable #. Hyperlipidemia: - Cont simvastatin #. GERD (gastroesophageal reflux disease): -Continue protonix daily #. Hypokalemia: - K 3.4 at presentation, replaced, monitor daily. #. Obesity (BMI 30-39.9): - BMI of 39.7, diet and exercise to be encouraged upon discharge - diet #. DVT PPx - teds, scds, lovenox subq daily CODE: Full code Dispo: From home, likely to remain in the hospital x for the next few days Admission and Anticipated Discharge Date Admission Date: January 24, 2021 Subjective Patient sitting up in chair, on 40 L nasal cannula oxygen, NAD, required increased oxygen overnight to 40 L. Per RN, his saturation drops with any movement/minimal movement. His saturation improves with proning. He is eating and having bowel movement okay. Patient reports subjective feeling of shortness of breath though his SaO2 is more than 90% on the monitor. Denies other review of symptoms. Physical Exam Physical Exam: GENERAL: Alert and oriented x3. NAD, on 4 L HFNC. HEENT: No pallor, no icterus. Pupils equal, round and reactive to light. Oral mucosa moist. NECK: No JVD, no neck masses. HEART: S1 and S2 heard. Regular rate and rhythm. No murmur, no gallop. RESPIRATORY SYSTEM: Normal AP diameter. No accessory muscle use. No wheezing, diffuse and bilateral crackles, diminished breath sounds bilaterally. ABDOMEN: Soft, bowel sounds present, nontender, no distention. CENTRAL NERVOUS SYSTEM: No facial droop. Speech is clear. Obeys simple commands. Moves extremities. EXTREMITIES: No edema, no erythema seen. Compression stockings bilateral lower extremity. Results & Data Results & Data ([facility]) Vital Signs (Past 12 Hours) Vital Signs Temp Pulse Pulse Pulse Resp BP Pulse Ox 01/25/21 16:35 75 20 90 01/25/21 14:33 36.6 C 96 H 18 122/83 91 01/25/21 11:48 36.6 C 101 H 18 122/82 92 01/25/21 11:29 93 H 20 93 01/25/21 08:44 82 01/25/21 08:16 86 19 95 01/25/21 07:57 36.8 C 94 H 22 132/76 94 01/25/21 06:12 36.8 C 52 L 16 131/78 86 L 01/25/21 05:57 104 H 28 H 90
[2021-01-25] MEDS: SIMVASTATIN 20 MG TAB PO SCH (21:20)
[2021-01-25] MEDS: MONTELUKAST SODIUM 10 MG TABLET PO SCH (21:21)
[2021-01-26] MEDS: ALBUT/IPRATROP 3MG/0.5MG NEB 3 ML VIAL NEB SCH ×6 (02:05→22:40)
[2021-01-26 09:13] LABS: Hematocrit (blood only) 46.4 % (42-52); Hemoglobin 15.1 g/dL (14.0-18.0); Mean Corpuscular Hemoglobin 29.3 pg (25-34); Mean Corpuscular Hgb Conc 32.5 g/dL (32-36); Mean Corpuscular Volume 89.9 fL (80-100); Mean Platelet Volume 10.9 fL (7.4-10.4); Platelet Count 253 K/uL (130-400); RDW Coefficient of Variation 14.1 % (11.5-14.5); RDW Standard Deviation 46.6 fL (36.4-46.3); Red Blood Count 5.16 M/uL (4.7-6.1); White Blood Count 11.76 K/uL (4.8-10.8)
[2021-01-26] MEDS: dexAMETHasone 10 MG in SYRINGE 0 ML IV SCH (09:37)
[2021-01-26] MEDS: ENOXAPARIN INJ 40 MG/0.4 ML SYR SQ SCH (09:37)
[2021-01-26] MEDS: LOSARTAN POTASSIUM 50 MG TAB PO SCH (09:38)
[2021-01-26] MEDS: guaiFENesin 600 MG TABCR PO SCH ×2 (09:38→20:34)
[2021-01-26] MEDS: PANTOprazole 40 MG TAB PO SCH (09:38)
[2021-01-26 09:41] LABS: BUN Creatinine Ratio 20.5 (10-20); Calcium 8.4 mg/dl (8.5-10.1); Creatinine Clr Calc Pharmacy 108.2 ml/min; Est GFR (African American) 96.1 ml/min; Est GFR (Non-African American) 82.9 ml/min; Potassium 4.2 mmol/L (3.5-5.1)
--- NOTE | 2021-01-26 11:42 | Pulmonology Progress Note ---
Date of Service January 26, 2021 Assessment & Plan (1) Acute respiratory failure with hypoxia: (2) Multifocal pneumonia: (3) Pneumonia due to 2019-nCoV: (4) Obesity (BMI 30-39.9): Plan: CT chest 01/24/2021 personally reviewed: Patchy groundglass opacities appreciated diffusely upper and lower lobes Minimal mediastinal adenopathy likely reactive --Acute hypoxic respiratory failure Secondary to multilobar COVID-19 pneumonia COVID-19 PCR positive CRP 11.3 Procalcitonin 0.14 Continue with O2 supplementation to keep oxygen saturation between 90-92%. Awake proning will be helpful Continue with incentive spirometry Continue with flutter valve. Recommend patient to be kept euvolemic to negative balance --Probable CR Trial of CPAP nightly and as needed shortness of breath Plan: In/out: -2.1 L, urine output 2800 ml BUN/creatinine is stable. We will give another 20 mg of Lasix I will repeat the CRP today, if the CRP is greater than 7.5 I will give him a dose of Tocilizumab Please note the above document was generated using voice recognition software. It may contain grammatical, syntax or spelling errors.Any formal questions or concerns about the content, text or information contained within the body of this dictation should be directly addressed to the provider for clarification. Admission and Anticipated Discharge Date Admission Date: January 24, 2021 Subjective Patient seen and examined at bedside. No acute distress, no adverse events overnight. Patient was 40 L, 70% saturating 91-92% States that he is feeling okay. He did try CPAP overnight but he was not able to tolerate it was too much pressure for him. Review of Systems Review of Systems: All systems reviewed & are unremarkable except as noted in Subjective Physical Exam Physical Exam: Constitutional: No acute distress HEENT: EOMI, PERRLA Respiratory system: Decreased air entry bilaterally, no wheeze, rhonchi, positive crackles bilaterally CVS: S1-S2 positive, no murmurs or gallops Abdomen: Soft, nontender, nondistended, positive bowel sounds x4 Extremities: +2 pulses bilaterally radialis/ dorsalis pedis, no cyanosis, no edema Neuro: Awake alert oriented x3 Psych: Normal mood and affect G/U: No [place] Skin: no rashes, warm and dry Lymphatic: no cervical or axillary lymphadenopathy Results & Data Results & Data ([facility] [place]) Vital Signs (Past 12 Hours) Vital Signs Temp Pulse Pulse Resp BP Pulse Ox Pulse Ox 01/26/21 11:34 36.9 C 68 18 125/68 89 L 01/26/21 10:09 77 22 97 01/26/21 08:30 36.6 C 89 21 125/72 90 01/26/21 07:19 90 22 88 L 01/26/21 04:00 36.4 C L 81 22 123/79 91 01/26/21 03:00 93 01/26/21 02:06 70 20 94 01/26/21 00:00 79 01/25/21 23:46 87 96 H 24 90 01/26/21 08:23 01/26/21 08:23 PG Care Time/CCT Total # of Minutes Spent Total Time Spent with Patient: Total time spent is greater than 50% in coordination of care (as documented) at patient's floor/unit and/or counseling patient: C[place] [address] Subseq Hosp Care Lvl 3 Patient Type Established Diagnoses Acute respiratory failure with hypoxia J96.01 Multifocal pneumonia J18.9 Pneumonia due to 2019-nCoV U07.1; J12.82 Obesity (BMI 30-39.9) E66.9
[2021-01-26] MEDS ORDERED: FUROSEMIDE 20 MG in SYRINGE 0 ML IV ONE (12:15)
--- NOTE | 2021-01-26 12:55 | Hospitalist Progress Note ---
Date of Service January 26, 2021 Assessment & Plan (1) Acute respiratory failure with hypoxia: (2) Pneumonia due to 2019-nCoV: (3) Obesity (BMI 30-39.9): (4) GERD (gastroesophageal reflux disease): Plan: 40-year-old male with PMH of HTN, HLD, obesity, GERD, seasonal allergies presents to the ER 01/24 with respiratory signs and symptoms [shortness of breath, intermittent fever, sweats, chills, headaches, body aches] since January 18, he was tested positive on January 29. Is being managed for acute hypoxic respiratory failure secondary to pneumonia due to COVID-19 virus. #. COVID: #. Acute hypoxic respiratory failure COVID-19 positive on Jan 21, repeat test here positive Leukopenia, pro-Jaime negative, no source of bacterial infection at present AST minimally elevated at 63, other liver enzymes WNL, LDH elevated at 522, CRP 11.3, ferritin 4479.4, D-dimer 1650 Trend Covid markers every other day Admitting CXR: Diffuse bilateral airspace opacities which are favored to represent pneumonia with or without aspiration/atelectasis. Admitting CTA CTA : Bilateral groundglass and consolidative opacities compatible with history of viral pneumonia. No evidence of pulmonary embolism. Patient was on 2 to 3 L nasal cannula oxygen at presentation, requiring up to 40 L oxygen currently. Prone as able, continue with flutter valve/incentive spirometry/nebulization/remdesivir 01/24/dexamethasone 01/24/daily lab monitoring/clinical monitoring. Lasix as needed to keep patient on the dry side. 20 mg IV Lasix given today. Monitor I's and O's. -740 ml to date. Pulmonology on board: Recommending nightly CPAP and as needed for SOB. Increased Decadron to 10 mg daily 01/25. Plan to repeat CRP and if greater than 7.5 --> will give Tocilizumab #. HTN (hypertension): - Cont losartan 50 mg daily, bp stable #. Hyperlipidemia: - Cont simvastatin #. GERD (gastroesophageal reflux disease): -Continue protonix daily #. Hypokalemia: - K 3.4 at presentation, replaced, monitor daily. #. Obesity (BMI 30-39.9): - BMI of 39.7, diet and exercise to be encouraged upon discharge - HH diet #. DVT PPx - teds, scds, lovenox subq daily CODE: Full code Dispo: From home, likely to remain in the hospital x for the next few days Admission and Anticipated Discharge Date Admission Date: January 24, 2021 Subjective Patient standing up and holding support, on high flow nasal cannula oxygen, did not tolerate CPAP overnight, denies fever/headache/chills/increased shortness of breath/other review of symptoms. Per RN no acute events overnight. He is eating okay and is having loose bowels. Physical Exam Physical Exam: GENERAL: Alert and oriented x3. NAD, on HFNC. HEENT: No pallor, no icterus. Pupils equal, round and reactive to light. Oral mucosa moist. NECK: No JVD, no neck masses. HEART: S1 and S2 heard. Regular rate and rhythm. No murmur, no gallop. RESPIRATORY SYSTEM: Normal AP diameter. No accessory muscle use. No wheezing, diffuse and bilateral crackles, diminished breath sounds bilaterally. ABDOMEN: Soft, bowel sounds present, nontender, no distention. CENTRAL NERVOUS SYSTEM: No facial droop. Speech is clear. Obeys simple commands. Moves extremities. EXTREMITIES: No edema, no erythema seen. Results & Data Results & Data ([facility]) Vital Signs (Past 12 Hours) Vital Signs Temp Pulse Pulse Resp BP Pulse Ox Pulse Ox 01/26/21 11:34 36.9 C 68 18 125/68 89 L 01/26/21 10:09 77 22 97 01/26/21 08:30 36.6 C 89 21 125/72 90 01/26/21 08:00 70 93 01/26/21 07:19 90 22 88 L 01/26/21 04:00 36.4 C L 81 22 123/79 91 01/26/21 03:00 93 01/26/21 02:06 70 20 94
[2021-01-26] MEDS: REMDESIVIR 100 MG in SODIUM CHLORIDE 0.9% 230 ML IV SCH (14:00)
[2021-01-26] MEDS: SODIUM CHLORIDE 0.9% 10ML FLUSH IV SCH (16:47)
[2021-01-26] MEDS: ACETAMINOPHEN 325 MG TAB PO PRN (20:32)
[2021-01-26] MEDS: MONTELUKAST SODIUM 10 MG TABLET PO SCH (20:34)
[2021-01-26] MEDS: SIMVASTATIN 20 MG TAB PO SCH (20:35)
[2021-01-27] MEDS: ALBUT/IPRATROP 3MG/0.5MG NEB 3 ML VIAL NEB SCH ×6 (03:11→22:40)
[2021-01-27 07:04] LABS: Hematocrit (blood only) 44.7 % (42-52); Hemoglobin 14.7 g/dL (14.0-18.0); Mean Corpuscular Hemoglobin 29.5 pg (25-34); Mean Corpuscular Hgb Conc 32.9 g/dL (32-36); Mean Corpuscular Volume 89.8 fL (80-100); Platelet Count 258 K/uL (130-400); RDW Standard Deviation 46.3 fL (36.4-46.3); Red Blood Count 4.98 M/uL (4.7-6.1); White Blood Count 12.38 K/uL (4.8-10.8)
[2021-01-27 07:55] LABS: Ferritin 3079.7 ng/ml (8-388)
[2021-01-27 08:05] LABS: D Dimer 760 ug/L FEU (0-500)
[2021-01-27] MEDS: ENOXAPARIN INJ 40 MG/0.4 ML SYR SQ SCH (08:24)
[2021-01-27] MEDS: LOSARTAN POTASSIUM 50 MG TAB PO SCH (08:25)
[2021-01-27] MEDS: guaiFENesin 600 MG TABCR PO SCH ×2 (08:25→21:30)
[2021-01-27] MEDS: PANTOprazole 40 MG TAB PO SCH (08:26)
[2021-01-27] MEDS: ACETAMINOPHEN 325 MG TAB PO PRN ×2 (08:42→21:37)
[2021-01-27] MEDS: dexAMETHasone 10 MG in SYRINGE 0 ML IV SCH (09:48)
--- NOTE | 2021-01-27 09:57 | Pulmonology Progress Note ---
Date of Service January 27, 2021 Assessment & Plan (1) Acute respiratory failure with hypoxia: (2) Multifocal pneumonia: (3) Pneumonia due to 2019-nCoV: (4) Obesity (BMI 30-39.9): Plan: CT chest 01/24/2021 personally reviewed: Patchy groundglass opacities appreciated diffusely upper and lower lobes Minimal mediastinal adenopathy likely reactive --Acute hypoxic respiratory failure Secondary to multilobar COVID-19 pneumonia COVID-19 PCR positive CRP 11.3 --> 4.25 Procalcitonin 0.14 Continue with O2 supplementation to keep oxygen saturation between 90-92%. Awake proning will be helpful Continue with incentive spirometry Continue with flutter valve. Recommend patient to be kept euvolemic to negative balance Given the CRP is trending down and patient is clinically improving there is no indication for Tocilizumab --Probable CR Trial of CPAP nightly and as needed shortness of breath Plan: In/out: -861, urine output 2001 ml, -1.6 L since coming to the hospital We will give another 20 mg of Lasix today I think we should try oxy-mask today if the patient is able to tolerate it We can discontinue the CPAP/BiPAP given the patient is not able to tolerate it and there is improvement in his respite status as well No further recommendation from pulmonary perspective. We'll sign off. Please call directly with any questions. Please note the above document was generated using voice recognition software. It may contain grammatical, syntax or spelling errors.Any formal questions or concerns about the content, text or information contained within the body of this dictation should be directly addressed to the provider for clarification. Admission and Anticipated Discharge Date Admission Date: January 24, 2021 Subjective Patient seen and examined at bedside. No acute distress, no adverse events overnight Patient was saturating 94% on 35 L, 60%. Went down to 45%. He was still saturating 91-92% Patient said he is feeling better. He has been trying to sleep on the belly. Denies any chest pain Using incentive spirometry Good appetite Patient was not able to tolerate the CPAP Review of Systems Review of Systems: All systems reviewed & are unremarkable except as noted in Subjective Physical Exam Physical Exam: Constitutional: No acute distress HEENT: EOMI, PERRLA Respiratory system: Decreased air entry bilaterally, no wheeze, rhonchi, positive crackles bilaterally CVS: S1-S2 positive, no murmurs or gallops Abdomen: Soft, nontender, nondistended, positive bowel sounds x4 Extremities: +2 pulses bilaterally radialis/ dorsalis pedis, no cyanosis, no edema Neuro: Awake alert oriented x3 Psych: Normal mood and affect G/U: No [place] Skin: no rashes, warm and dry Lymphatic: no cervical or axillary lymphadenopathy Results & Data Results & Data ([facility]) Vital Signs (Past 12 Hours) Vital Signs Temp Pulse Pulse Pulse Resp BP BP 01/27/21 08:02 36.7 C 77 20 120/80 01/27/21 07:17 83 20 01/27/21 07:15 83 20 01/27/21 04:49 36.6 C 84 18 117/74 01/27/21 03:11 83 20 01/27/21 00:00 74 01/26/21 23:12 36.7 C 96 H 18 112/72 01/26/21 22:44 89 20 Pulse Ox 01/27/21 08:02 92 01/27/21 07:17 94 01/27/21 07:15 94 01/27/21 04:49 96 01/27/21 03:11 98 01/27/21 00:00 01/26/21 23:12 01/26/21 22:44 92 01/27/21 06:34 01/26/21 08:23 PG Care Time/CCT Total # of Minutes Spent Total Time Spent with Patient: Total time spent is greater than 50% in coordination of care (as documented) at patient's floor/unit and/or counseling patient: Coding Level of Care Code 28945 Subseq Hosp Care Lvl 3 Diagnoses Acute respiratory failure with hypoxia J96.01 Multifocal pneumonia J18.9 Pneumonia due to 2019-nCoV U07.1; J12.82 Obesity (BMI 30-39.9) E66.9
[2021-01-27 10:27] LABS: BUN Creatinine Ratio 25.5 (10-20); Calcium 8.3 mg/dl (8.5-10.1); Creatinine Clr Calc Pharmacy 119.8 ml/min; Est GFR (African American) 109.2 ml/min; Est GFR (Non-African American) 94.2 ml/min; Potassium 4.3 mmol/L (3.5-5.1)
[2021-01-27] MEDS ORDERED: FUROSEMIDE 20 MG in SYRINGE 0 ML IV ONE (11:30)
[2021-01-27] MEDS: REMDESIVIR 100 MG in SODIUM CHLORIDE 0.9% 230 ML IV SCH (11:37)
--- NOTE | 2021-01-27 12:33 | Hospitalist Progress Note ---
Date of Service January 27, 2021 Assessment & Plan (1) Acute respiratory failure with hypoxia: (2) Pneumonia due to 2019-nCoV: (3) Obesity (BMI 30-39.9): (4) GERD (gastroesophageal reflux disease): Plan: 40-year-old male with PMH of HTN, HLD, obesity, GERD, seasonal allergies presents to the ER 01/24 with respiratory signs and symptoms [shortness of breath, intermittent fever, sweats, chills, headaches, body aches] since January 18, he was tested positive on January 29. Is being managed for acute hypoxic respiratory failure secondary to pneumonia due to COVID-19 virus. #. COVID: #. Acute hypoxic respiratory failure COVID-19 positive on Jan 21, repeat test here positive Leukopenia, pro-Jaime negative, no source of bacterial infection at present Presenting AST minimally elevated at 63, other liver enzymes WNL, LDH elevated at 522, CRP 11.3, ferritin 4479.4, D-dimer 1650 Covid markers trending down. Trend Covid markers every other day as approved.. Admitting CXR: Diffuse bilateral airspace opacities which are favored to represent pneumonia with or without aspiration/atelectasis. Admitting CTA CTA : Bilateral groundglass and consolidative opacities compatible with history of viral pneumonia. No evidence of pulmonary embolism. Patient was on 2 to 3 L nasal cannula oxygen at presentation, requiring up to 40 L oxygen, down to 6 L on 01/27. Prone as able, continue with flutter valve/incentive spirometry/nebulization/remdesivir 01/24/dexamethasone 01/24/daily lab monitoring/clinical monitoring. Lasix as needed to keep patient on the dry side. 20 mg IV Lasix given today. Monitor I's and O's. -1601 ml to date. Pulmonology on board: DC CPAP. Increased Decadron to 10 mg daily 01/25. Repeat CRP down trended->patient did not qualify for Tocilizumab. #. HTN (hypertension): - Cont losartan 50 mg daily, bp stable #. Hyperlipidemia: - Cont simvastatin #. GERD (gastroesophageal reflux disease): -Continue protonix daily #. Hypokalemia: - K 3.4 at presentation, replaced, monitor daily. #. Obesity (BMI 30-39.9): - BMI of 39.7, diet and exercise to be encouraged upon discharge - diet #. DVT PPx - teds, scds, lovenox subq daily CODE: Full code Dispo: From home, likely to remain in the hospital x for the next few days Admission and Anticipated Discharge Date Admission Date: January 24, 2021 Subjective Patient sitting up in chair, on 6 L oxygen via oxygen mask, NAD, no issues overnight. Patient eating okay and his bowel movements consistency getting better. Per RN, no issues overnight, patient desats with minimal exertion. Patient denied chest pain/increased shortness of breath/other review of symptoms. Physical Exam Physical Exam: GENERAL: Alert and oriented x3. NAD, on 6 L oxygen mask HEENT: No pallor, no icterus. Pupils equal, round and reactive to light. Oral mucosa moist. NECK: No JVD, no neck masses. HEART: S1 and S2 heard. Regular rate and rhythm. No murmur, no gallop. RESPIRATORY SYSTEM: Normal AP diameter. No accessory muscle use. No wheezing, diminished breath sounds bilaterally, crackles could not be appreciated. ABDOMEN: Soft, bowel sounds present, nontender, no distention. CENTRAL NERVOUS SYSTEM: No facial droop. Speech is clear. Obeys simple commands. Moves extremities. EXTREMITIES: Trace edema, no erythema seen. Results & Data Results & Data ([facility]) Vital Signs (Past 12 Hours) Vital Signs Temp Pulse Pulse Resp BP BP Pulse Ox 01/27/21 08:02 36.7 C 77 20 120/80 92 01/27/21 07:17 83 20 94 01/27/21 07:15 83 20 94 01/27/21 04:49 36.6 C 84 18 117/74 96 01/27/21 03:11 83 20 98
[2021-01-27] MEDS: SODIUM CHLORIDE 0.9% 10ML FLUSH IV SCH (12:46)
[2021-01-27] MEDS: SIMVASTATIN 20 MG TAB PO SCH (21:29)
[2021-01-27] MEDS: MONTELUKAST SODIUM 10 MG TABLET PO SCH (21:29)
[2021-01-28] MEDS: ALBUT/IPRATROP 3MG/0.5MG NEB 3 ML VIAL NEB SCH ×2 (03:25→07:43)
[2021-01-28 07:00] LABS: Hematocrit (blood only) 46.8 % (42-52); Hemoglobin 15.6 g/dL (14.0-18.0); Mean Corpuscular Hemoglobin 29.3 pg (25-34); Mean Corpuscular Hgb Conc 33.3 g/dL (32-36); Mean Platelet Volume 11.1 fL (7.4-10.4); Platelet Count 263 K/uL (130-400); RDW Coefficient of Variation 13.9 % (11.5-14.5); RDW Standard Deviation 44.5 fL (36.4-46.3); Red Blood Count 5.32 M/uL (4.7-6.1); White Blood Count 15.12 K/uL (4.8-10.8)
[2021-01-28] MEDS: LOSARTAN POTASSIUM 50 MG TAB PO SCH (08:09)
[2021-01-28] MEDS: PANTOprazole 40 MG TAB PO SCH (08:09)
[2021-01-28] MEDS: ENOXAPARIN INJ 40 MG/0.4 ML SYR SQ SCH (08:09)
[2021-01-28] MEDS: dexAMETHasone 10 MG in SYRINGE 0 ML IV SCH (08:11)
[2021-01-28] MEDS ORDERED: ALBUT/IPRATROP 3MG/0.5MG NEB 3 ML VIAL NEB PRN (10:12)
[2021-01-28] MEDS: guaiFENesin 600 MG TABCR PO SCH ×2 (12:44→20:43)
[2021-01-28] MEDS: REMDESIVIR 100 MG in SODIUM CHLORIDE 0.9% 230 ML IV SCH (13:03)
--- NOTE | 2021-01-28 13:46 | Hospitalist Progress Note ---
Date of Service January 28, 2021 Assessment & Plan (1) Acute respiratory failure with hypoxia: (2) Pneumonia due to 2019-nCoV: (3) Obesity (BMI 30-39.9): (4) GERD (gastroesophageal reflux disease): Plan: 40-year-old male with PMH of HTN, HLD, obesity, GERD, seasonal allergies presents to the ER 01/24 with respiratory signs and symptoms [shortness of breath, intermittent fever, sweats, chills, headaches, body aches] since January 18, he was tested positive on January 29. Is being managed for acute hypoxic respiratory failure secondary to pneumonia due to COVID-19 virus. #. COVID: #. Acute hypoxic respiratory failure COVID-19 positive on Jan 21, repeat test here positive Leukopenia, pro-Jaime negative, no source of bacterial infection at present Presenting AST minimally elevated at 63, other liver enzymes WNL, LDH elevated at 522, CRP 11.3, ferritin 4479.4, D-dimer 1650 Covid markers trending down. Trend Covid markers every other day as appropriate. Admitting CXR: Diffuse bilateral airspace opacities which are favored to represent pneumonia with or without aspiration/atelectasis. Admitting CTA CTA : Bilateral groundglass and consolidative opacities compatible with history of viral pneumonia. No evidence of pulmonary embolism. Patient was on 2 to 3 L nasal cannula oxygen at presentation, requiring up to 40 L oxygen, down to 6 L on 01/27 and again back up to 30 L on 01/28. Prone as able, continue with flutter valve/incentive spirometry/nebulization/ remdesivir 01/24/dexamethasone 01/24/daily lab monitoring/clinical monitoring. Lasix as needed to keep patient on the dry side. Monitor I's and O's. -2.5 L to date. Pulmonology on board: DC CPAP. Increased Decadron to 10 mg daily 01/25. Repeat CRP down trended->patient did not qualify for Tocilizumab. We will get the Covid parameters along with daily labs tomorrow. #. HTN (hypertension): - Cont losartan 50 mg daily, bp stable #. Hyperlipidemia: - Cont simvastatin #. GERD (gastroesophageal reflux disease): -Continue protonix daily #. Hypokalemia: - K 3.4 at presentation, replaced, monitor daily. #. Obesity (BMI 30-39.9): - BMI of 39.7, diet and exercise to be encouraged upon discharge - diet #. DVT PPx - teds, scds, lovenox subq daily CODE: Full code Dispo: From home, likely to remain in the hospital x for the next few days, to b e decided once patient starts to show improvement. Admission and Anticipated Discharge Date Admission Date: January 24, 2021 Subjective Patient proning in the bed, on 30 L high flow nasal cannula up from 6 L oxygen via oxygen max yesterday at bedside, no issues overnight. Patient eating okay and his bowel movements okay. Patient desaturates with minimal exertion. He denied chest pain/increased shortness of breath/other review of symptoms. Physical Exam Physical Exam: GENERAL: Alert and oriented x3. NAD, on 3 L high flow nasal cannula HEENT: No pallor, no icterus. Pupils equal, round and reactive to light. Oral mucosa moist. NECK: No JVD, no neck masses. HEART: S1 and S2 heard. Regular rate and rhythm. No murmur, no gallop. RESPIRATORY SYSTEM: Normal AP diameter. No accessory muscle use. No wheezing, diminished breath sounds bilaterally, crackles could not be appreciated. ABDOMEN: Soft, bowel sounds present, nontender, no distention. CENTRAL NERVOUS SYSTEM: No facial droop. Speech is clear. Obeys simple commands. Moves extremities. EXTREMITIES: Trace edema, no erythema seen. Results & Data Results & Data ([facility]) Vital Signs (Past 12 Hours) Vital Signs Temp Pulse Pulse Resp BP BP Pulse Ox 01/28/21 11:35 68 20 94 01/28/21 11:20 36.8 C 90 21 136/76 94 01/28/21 11:14 86 01/28/21 09:51 01/28/21 08:24 01/28/21 08:22 36.4 C L 78 20 114/77 92 01/28/21 07:43 72 20 93 01/28/21 04:02 36.6 C 87 24 117/77 92 01/28/21 03:26 100 H 20 93 Pulse Ox 01/28/21 11:35 01/28/21 11:20 01/28/21 11:14 01/28/21 09:51 96 01/28/21 08:24 93 01/28/21 08:22 01/28/21 07:43 01/28/21 04:02 01/28/21 03:26
[2021-01-28] MEDS: SODIUM CHLORIDE 0.9% 10ML FLUSH IV SCH (17:00)
[2021-01-28] MEDS: ACETAMINOPHEN 325 MG TAB PO PRN (17:08)
[2021-01-28] MEDS: MONTELUKAST SODIUM 10 MG TABLET PO SCH (20:43)
[2021-01-28] MEDS: SIMVASTATIN 20 MG TAB PO SCH (20:43)
[2021-01-28] MEDS ORDERED: LORazepam 0.5 MG TAB PO STA (23:23)
[2021-01-29] MEDS: guaiFENesin 600 MG TABCR PO SCH ×2 (07:32→19:44)
[2021-01-29] MEDS: dexAMETHasone 10 MG in SYRINGE 0 ML IV SCH (07:32)
[2021-01-29] MEDS: ENOXAPARIN INJ 40 MG/0.4 ML SYR SQ SCH (07:32)
[2021-01-29] MEDS: PANTOprazole 40 MG TAB PO SCH (07:33)
[2021-01-29] MEDS: LOSARTAN POTASSIUM 50 MG TAB PO SCH (07:33)
[2021-01-29 08:26] LABS: Hematocrit (blood only) 49.3 % (42-52); Hemoglobin 16.1 g/dL (14.0-18.0); Mean Corpuscular Hemoglobin 29.3 pg (25-34); Mean Corpuscular Hgb Conc 32.7 g/dL (32-36); Mean Corpuscular Volume 89.8 fL (80-100); Mean Platelet Volume 10.9 fL (7.4-10.4); Platelet Count 343 K/uL (130-400); RDW Coefficient of Variation 13.7 % (11.5-14.5); RDW Standard Deviation 45.7 fL (36.4-46.3); Red Blood Count 5.49 M/uL (4.7-6.1); White Blood Count 18.16 K/uL (4.8-10.8)
[2021-01-29 08:57] LABS: BUN Creatinine Ratio 31.1 (10-20); C Reactive Protein 0.87 mg/dl (0-0.29); Calcium 8.8 mg/dl (8.5-10.1); Creatinine Clr Calc Pharmacy 142.5 ml/min; Est GFR (Non-African American) 108.8 ml/min; Potassium 4.2 mmol/L (3.5-5.1)
[2021-01-29 09:13] LABS: Ferritin 2686.3 ng/ml (8-388)
[2021-01-29 09:37] LABS: D Dimer 870 ug/L FEU (0-500)
[2021-01-29] MEDS: SODIUM CHLORIDE 0.9% 10ML FLUSH IV SCH (14:10)
--- NOTE | 2021-01-29 14:31 | Hospitalist Progress Note ---
Date of Service January 29, 2021 Assessment & Plan (1) Acute respiratory failure with hypoxia: (2) Pneumonia due to 2019-nCoV: (3) Obesity (BMI 30-39.9): (4) GERD (gastroesophageal reflux disease): Plan: 40-year-old male with PMH of HTN, HLD, obesity, GERD, seasonal allergies presents to the ER 01/24 with respiratory signs and symptoms [shortness of breath, intermittent fever, sweats, chills, headaches, body aches] since January 18, he was tested positive on January 29. Is being managed for acute hypoxic respiratory failure secondary to pneumonia due to COVID-19 virus. #. COVID: #. Acute hypoxic respiratory failure COVID-19 positive on Jan 21, repeat test here positive Leukopenia, pro-Jaime negative, no source of bacterial infection at present Presenting AST minimally elevated at 63, other liver enzymes WNL, LDH elevated at 522, CRP 11.3, ferritin 4479.4, D-dimer 1650 Covid markers trending down. Trend Covid markers every other day as appropriate. Admitting CXR: Diffuse bilateral airspace opacities which are favored to represent pneumonia with or without aspiration/atelectasis. Admitting CTA CTA : Bilateral groundglass and consolidative opacities compatible with history of viral pneumonia. No evidence of pulmonary embolism. Patient was on 2 to 3 L nasal cannula oxygen at presentation, requiring up to 40 L oxygen, down to 6 L on 01/27 and again back up to 30 L on 01/28. Prone as able, continue with flutter valve/incentive spirometry/nebulization/ remdesivir 01/24/dexamethasone 01/24/daily lab monitoring/clinical monitoring. Lasix as needed to keep patient on the dry side. Monitor I's and O's. - 3.8 L to date. Pulmonology on board: DC CPAP. Increased Decadron to 10 mg daily 01/25. Repeat CRP down trended->patient did not qualify for Tocilizumab. We will give 20 mg IV Lasix today. #. HTN (hypertension): - Cont losartan 50 mg daily, bp stable #. Hyperlipidemia: - Cont simvastatin #. GERD (gastroesophageal reflux disease): -Continue protonix daily #. Hypokalemia: - K 3.4 at presentation, replaced, monitor daily. #. Obesity (BMI 30-39.9): - BMI of 39.7, diet and exercise to be encouraged upon discharge - diet #. DVT PPx - teds, scds, lovenox subq daily CODE: Full code Dispo: From home, likely to remain in the hospital x for the next few days, to be decided once patient starts to show improvement. Admission and Anticipated Discharge Date Admission Date: January 24, 2021 Subjective Patient lying supine in bed, on 8 L oxygen via oxygen mask, feels tired, NAD, no acute events overnight. Patient denies headache/dizziness/increased shortness of breath/other review of symptoms. Per RN, he desaturates with minimal exertion. He is done with total course of remdesivir yesterday. Physical Exam Physical Exam: GENERAL: Alert and oriented x3. NAD, on 8 L high flow nasal cannula HEENT: No pallor, no icterus. Pupils equal, round and reactive to light. Oral mucosa moist. NECK: No JVD, no neck masses. HEART: S1 and S2 heard. Regular rate and rhythm. No murmur, no gallop. RESPIRATORY SYSTEM: Normal AP diameter. No accessory muscle use. No wheezing, diminished breath sounds bilaterally, crackles could not be appreciated. ABDOMEN: Soft, bowel sounds present, nontender, no distention. CENTRAL NERVOUS SYSTEM: No facial droop. Speech is clear. Obeys simple commands. Moves extremities. EXTREMITIES: Trace edema, no erythema seen. Results & Data Results & Data ([facility]) Vital Signs (Past 12 Hours) Vital Signs Temp Pulse Resp BP Pulse Ox 01/29/21 12:10 36.5 C 82 20 109/72 94 01/29/21 08:03 36.6 C 79 22 121/83 92 01/29/21 03:35 36.8 C 79 19 123/86 90
[2021-01-29] MEDS ORDERED: FUROSEMIDE 20 MG in SYRINGE 0 ML IV ONE (14:45)
[2021-01-29] MEDS ORDERED: FUROSEMIDE 40 MG/4 ML VIAL IV ONE (15:19)
[2021-01-29] MEDS ORDERED: FUROSEMIDE 40 MG/4 ML VIAL IV SCH (15:30)
[2021-01-29] MEDS ORDERED: LORazepam 0.5 MG TAB PO STA (17:24)
[2021-01-29] MEDS: SIMVASTATIN 20 MG TAB PO SCH (19:44)
[2021-01-29] MEDS: MONTELUKAST SODIUM 10 MG TABLET PO SCH (19:44)
[2021-01-29] MEDS ORDERED: LORazepam 0.5 MG TAB ONE (22:02)
[2021-01-30 07:14] LABS: Hematocrit (blood only) 47.9 % (42-52); Hemoglobin 16.3 g/dL (14.0-18.0); Mean Corpuscular Hemoglobin 29.4 pg (25-34); Mean Corpuscular Volume 86.5 fL (80-100); Mean Platelet Volume 10.6 fL (7.4-10.4); Platelet Count 332 K/uL (130-400); RDW Coefficient of Variation 13.4 % (11.5-14.5); RDW Standard Deviation 42.6 fL (36.4-46.3); Red Blood Count 5.54 M/uL (4.7-6.1); White Blood Count 22.46 K/uL (4.8-10.8)
[2021-01-30] MEDS: LOSARTAN POTASSIUM 50 MG TAB PO SCH (08:54)
[2021-01-30] MEDS: PANTOprazole 40 MG TAB PO SCH (08:54)
[2021-01-30] MEDS: guaiFENesin 600 MG TABCR PO SCH ×2 (08:54→21:01)
[2021-01-30] MEDS: ENOXAPARIN INJ 40 MG/0.4 ML SYR SQ SCH (08:55)
[2021-01-30] MEDS: dexAMETHasone 10 MG in SYRINGE 0 ML IV SCH (08:55)
[2021-01-30] MEDS ORDERED: LORazepam 0.5 MG TAB PO PRN (13:30)
--- NOTE | 2021-01-30 15:37 | Hospitalist Progress Note ---
Date of Service January 30, 2021 Assessment & Plan (1) Acute respiratory failure with hypoxia: (2) Pneumonia due to 2019-nCoV: (3) Obesity (BMI 30-39.9): (4) GERD (gastroesophageal reflux disease): Plan: 40-year-old male with PMH of HTN, HLD, obesity, GERD, seasonal allergies presents to the ER 01/24 with respiratory signs and symptoms [shortness of breath, intermittent fever, sweats, chills, headaches, body aches] since January 18, he was tested positive on January 29. Is being managed for acute hypoxic respiratory failure secondary to pneumonia due to COVID-19 virus. #. COVID 19 Pneumonia: #. Acute hypoxic respiratory failure Did not receive the Covid vaccine COVID-19 positive on Jan 21, repeat test here positive Presenting AST minimally elevated at 63, other liver enzymes WNL, LDH elevated at 522, CRP 11.3, ferritin 4479.4, D-dimer 1650 Covid markers trending down. Admitting CXR: Diffuse bilateral airspace opacities which are favored to represent pneumonia with or without aspiration/atelectasis. Admitting CTA CTA : Bilateral groundglass and consolidative opacities compatible with history of viral pneumonia. No evidence of pulmonary embolism. Patient was on 2 to 3 L nasal cannula oxygen at presentation, requiring up to 40 L oxygen, down to 6 L on 01/27 and again back up to 30 L on 01/28. Prone as able, continue with flutter valve/incentive spirometry/nebulization/ remdesivir 01/24/dexamethasone 01/24/daily lab monitoring/clinical monitoring. Lasix as needed to keep patient on the dry side. Monitor I's and O's. - 3.8 L to date. Pulmonology on board: DC CPAP. Increased Decadron to 10 mg daily 01/25. Repeat CRP down trended->patient did not qualify for Tocilizumab. Has been receiving small doses of Lasix to keep him on the dry side Use of spirometry and flutter valve as advised Prone position if possible #. HTN (hypertension): - Cont losartan 50 mg daily, bp stable #. Hyperlipidemia: - Cont simvastatin #. GERD (gastroesophageal reflux disease): -Continue protonix daily #. Hypokalemia: - K 3.4 at presentation, replaced, monitor daily. #. Obesity (BMI 30-39.9): - BMI of 39.7, diet and exercise to be encouraged upon discharge - HH diet #. DVT PPx - teds, scds, lovenox subq daily CODE: Full code Dispo: From home, likely to remain in the hospital x for the next few days, to be decided once patient starts to show improvement. Not yet ready to be discharged Admission and Anticipated Discharge Date Admission Date: January 24, 2021 Subjective 01/30/2021 The patient was seen and examined in telemetry unit and in the Covid room He has been feeling much better at rest Requiring 6 L of oxygen at rest and desaturates quite easily with ambulation Has not had sleep for a long time and that is making him tired Review of Systems Review of Systems: All systems reviewed and are unremarkable except as noted below Physical Exam Physical Exam: Sitting on a chair without any acute distress Constitutional: well developed, well nourished, + ill appearing and + obese Eyes: PERRL, conjunctivae normal, anicteric sclerae ENMT: external ear and nose normal, oropharynx normal Neck: trachea midline, no thyromegaly Respiratory: + cough; no respiratory distress (At rest) Auscultation: + diminished lung sounds and + crackles (At the bases) Cardiovascular: Rate/Rhythm: regular rate and regular rhythm; not tachycardic Heart Sounds: normal S1 and normal S2; no murmur Extremities: no edema Gastrointestinal (Abdomen): Inspection/Auscultation: normal bowel sounds; abdomen not distended Percussion/Palpation: abdomen soft; abdomen nontender Musculoskeletal: No acute arthritis in any joint Neurologic: Alert, awake and oriented x3. No focal sensory and motor deficit appreciated Results & Data Results & Data ([facility]) Vital Signs (Past 12 Hours) Vital Signs Temp Pulse Pulse Resp BP Pulse Ox Pulse Ox 01/30/21 12:25 36.8 C 90 20 104/72 95 01/30/21 09:00 92 01/30/21 08:13 36.6 C 82 22 115/76 90 01/30/21 08:00 58 L 01/30/21 04:09 36.5 C 75 20 130/87 93 Laboratory Results Short CBC 01/30/21 Range/Units 06:57 WBC 22.46 H (4.8-10.8) K/uL Hgb 16.3 (14.0-18.0) g/dL Hct 47.9 (42-52) % Plt Count 332 (130-400) K/uL Medications Administered Current Inpatient Medications Acetaminophen (Acetaminophen 325 Mg Tab) 650 mg PO Q4H PRN PRN Reason: Moderate Pain Stop: 02/23/21 20:42 Last Admin: 01/28/21 17:08 Dose: 650 mg Documented by: Albuterol (Albuterol Hfa 8 Gm Inhaler) 2 puffs INH Q4H PRN PRN Reason: shortness of breath or wheezing Stop: 02/23/21 20:42 Albuterol (Albut/Ipratrop 3mg/0.5mg Neb 3 Ml Vial) 3 ml NEB Q4R PRN PRN Reason: Shortness Of Breath Or Wheezing Stop: 02/23/21 20:42 Last Admin: 01/28/21 23:04 Dose: 3 ml Documented by: Enoxaparin Sodium (Enoxaparin Inj 40 Mg/0.4 Ml Syr) 40 mg SQ QAM FELIBERTO Stop: 02/24/21 08:59 Last Admin: 01/30/21 08:55 Dose: 40 mg Documented by: Guaifenesin (Guaifenesin 600 Mg Tabcr) 1,200 mg PO Q12 FELIBERTO Stop: 02/23/21 20:59 Last Admin: 01/30/21 08:54 Dose: 1,200 mg Documented by: Dexamethasone 10 mg/ Syringe 2.5 mls @ 1 mls/min IV DAILY FELIBERTO Stop: 02/03/21 09:03 Last Admin: 01/30/21 08:55 Dose: 1 mls/min Documented by: Lorazepam (Lorazepam 0.5 Mg Tab) 0.25 mg PO HS PRN PRN Reason: Anxiety Stop: 03/01/21 13:29 Losartan Potassium (Losartan Potassium 50 Mg Tab) 50 mg PO QAM FELIBERTO Stop: 02/24/21 08:59 Last Admin: 01/30/21 08:54 Dose: 50 mg Documented by: Montelukast Sodium (Montelukast Sodium 10 Mg Tablet) 10 mg PO HS FELIBERTO Stop: 02/23/21 20:59 Last Admin: 01/29/21 19:44 Dose: 10 mg Documented by: Ondansetron HCl (Ondansetron Inj 2 Mg/Ml 2 Ml Vial) 4 mg IV Q4H PRN PRN Reason: Nausea And Vomiting Stop: 02/23/21 20:42 Pantoprazole Sodium (Pantoprazole 40 Mg Tab) 40 mg PO [facility] Stop: 02/24/21 08:59 Last Admin: 01/30/21 08:54 Dose: 40 mg Documented by: Simvastatin (Simvastatin 20 Mg Tab) 20 mg PO [facility] Stop: 02/23/21 20:59 Last Admin: 01/29/21 19:44 Dose: 20 mg Documented by:
[2021-01-30] MEDS ORDERED: CALCIUM CARBONATE 500 MG CHEWABLE TAB PO PRN (18:54)
[2021-01-30] MEDS: MONTELUKAST SODIUM 10 MG TABLET PO SCH (21:01)
[2021-01-30] MEDS: SIMVASTATIN 20 MG TAB PO SCH (21:01)
[2021-01-31] MEDS: ACETAMINOPHEN 325 MG TAB PO PRN (08:26)
[2021-01-31] MEDS: guaiFENesin 600 MG TABCR PO SCH ×2 (08:27→20:56)
[2021-01-31] MEDS: LOSARTAN POTASSIUM 50 MG TAB PO SCH (08:27)
[2021-01-31] MEDS: PANTOprazole 40 MG TAB PO SCH (08:27)
[2021-01-31] MEDS: ENOXAPARIN INJ 40 MG/0.4 ML SYR SQ SCH (08:28)
[2021-01-31] MEDS: dexAMETHasone 10 MG in SYRINGE 0 ML IV SCH (08:28)
[2021-01-31] MEDS ORDERED: FUROSEMIDE 40 MG in SYRINGE 0 ML IV ONE (14:10)
[2021-01-31] MEDS ORDERED: FUROSEMIDE 40 MG/4 ML VIAL IV ONE ×2 (14:15→16:16)
--- NOTE | 2021-01-31 16:05 | Hospitalist Progress Note ---
Date of Service January 31, 2021 Assessment & Plan (1) Acute respiratory failure with hypoxia: (2) Pneumonia due to 2019-nCoV: (3) Obesity (BMI 30-39.9): (4) GERD (gastroesophageal reflux disease): Plan: 40-year-old male with PMH of HTN, HLD, obesity, GERD, seasonal allergies presents to the ER 01/24 with respiratory signs and symptoms [shortness of breath, intermittent fever, sweats, chills, headaches, body aches] since January 18, he was tested positive on January 29. Is being managed for acute hypoxic respiratory failure secondary to pneumonia due to COVID-19 virus. #. COVID 19 Pneumonia: #. Acute hypoxic respiratory failure Did not receive the Covid vaccine COVID-19 positive on Jan 21, repeat test here positive Presenting AST minimally elevated at 63, other liver enzymes WNL, LDH elevated at 522, CRP 11.3, ferritin 4479.4, D-dimer 1650 Covid markers trending down. Admitting CXR: Diffuse bilateral airspace opacities which are favored to represent pneumonia with or without aspiration/atelectasis. Admitting CTA CTA : Bilateral groundglass and consolidative opacities compatible with history of viral pneumonia. No evidence of pulmonary embolism. Patient was on 2 to 3 L nasal cannula oxygen at presentation, requiring up to 40 L oxygen, down to 6 L on 01/27 and again back up to 30 L on 01/28. Prone as able, continue with flutter valve/incentive spirometry/nebulization/ remdesivir 01/24/dexamethasone 01/24/daily lab monitoring/clinical monitoring. Lasix as needed to keep patient on the dry side. Monitor I's and O's. - 3.8 L to date. Pulmonology on board: DC CPAP. Increased Decadron to 10 mg daily 01/25. Repeat CRP down trended->patient did not qualify for Tocilizumab. Has been receiving small doses of Lasix to keep him on the dry side Use of spirometry and flutter valve as advised Clinically a lot better today and has been requiring about 1 to 2 L liters of oxygen to maintain saturation Was advised to increase ambulation-possible discharge tomorrow following 2 steps O2 saturation test #. HTN (hypertension): - Cont losartan 50 mg daily, bp stable #. Hyperlipidemia: - Cont simvastatin #. GERD (gastroesophageal reflux disease): -Continue protonix daily #. Hypokalemia: - K 3.4 at presentation, replaced, monitor daily. #. Obesity (BMI 30-39.9): - BMI of 39.7, diet and exercise to be encouraged upon discharge - HH diet #. DVT PPx - teds, scds, lovenox subq daily CODE: Full code Dispo: From home, likely to remain in the hospital x for the next few days, to be decided once patient starts to show improvement. Not yet ready to be discharged Admission and Anticipated Discharge Date Admission Date: January 24, 2021 Subjective 01/30/2021 The patient was seen and examined in telemetry unit and in the Covid room He has been feeling much better at rest Requiring 6 L of oxygen at rest and desaturates quite easily with ambulation Has not had sleep for a long time and that is making him tired 01/31/2021 The patient was seen and examined in telemetry unit and in the Covid room He has been feeling much better today and has been requiring about 2 L of oxygen to maintain saturation Denies any cough and/or shortness of breath at rest Review of Systems Review of Systems: All systems reviewed and are unremarkable except as noted below Physical Exam Physical Exam: Sitting on a chair without any acute distress Constitutional: well developed, well nourished, + ill appearing and + obese Eyes: PERRL, conjunctivae normal, anicteric sclerae ENMT: external ear and nose normal, oropharynx normal Neck: trachea midline, no thyromegaly Respiratory: + cough; no respiratory distress (At rest) Auscultation: + diminished lung sounds; no crackles (At the bases) Cardiovascular: Rate/Rhythm: regular rate and regular rhythm; not tachycardic Heart Sounds: normal S1 and normal S2; no murmur Extremities: no edema Gastrointestinal (Abdomen): Inspection/Auscultation: normal bowel sounds; abdomen not distended Percussion/Palpation: abdomen soft; abdomen nontender Musculoskeletal: No acute arthritis in any joint Neurologic: Alert, awake and oriented x3. No focal sensory or motor deficit appreciated Results & Data Results & Data ([facility]) Vital Signs (Past 12 Hours) Vital Signs Temp Pulse Pulse Resp BP Pulse Ox Pulse Ox 01/31/21 12:17 36.8 C 67 20 110/72 96 01/31/21 09:00 97 01/31/21 08:00 52 L 01/31/21 07:29 37.0 C 78 18 107/65 91 01/31/21 04:52 37.0 C 64 18 106/67 94 Medications Administered Current Inpatient Medications Acetaminophen (Acetaminophen 325 Mg Tab) 650 mg PO Q4H PRN PRN Reason: Moderate Pain Stop: 02/23/21 20:42 Last Admin: 01/31/21 08:26 Dose: 650 mg Documented by: Albuterol (Albuterol Hfa 8 Gm Inhaler) 2 puffs INH Q4H PRN PRN Reason: shortness of breath or wheezing Stop: 02/23/21 20:42 Albuterol (Albut/Ipratrop 3mg/0.5mg Neb 3 Ml Vial) 3 ml NEB Q4R PRN PRN Reason: Shortness Of Breath Or Wheezing Stop: 02/23/21 20:42 Last Admin: 01/28/21 23:04 Dose: 3 ml Documented by: Calcium Carbonate (Calcium Carbonate 500 Mg Chewable Tab) 1,500 mg PO Q4 PRN PRN Reason: Indigestion Stop: 03/01/21 18:53 Last Admin: 01/30/21 21:03 Dose: 1,500 mg Documented by: Enoxaparin Sodium (Enoxaparin Inj 40 Mg/0.4 Ml Syr) 40 mg SQ QAM FELIBERTO Stop: 02/24/21 08:59 Last Admin: 01/31/21 08:28 Dose: 40 mg Documented by: Guaifenesin (Guaifenesin 600 Mg Tabcr) 1,200 mg PO Q12 FELIBERTO Stop: 02/23/21 20:59 Last Admin: 01/31/21 08:27 Dose: 1,200 mg Documented by: Dexamethasone 10 mg/ Syringe 2.5 mls @ 1 mls/min IV DAILY FELIBERTO Stop: 02/03/21 09:03 Last Admin: 01/31/21 08:28 Dose: 1 mls/min Documented by: Lorazepam (Lorazepam 0.5 Mg Tab) 0.25 mg PO HS PRN PRN Reason: Anxiety Stop: 03/01/21 13:29 Losartan Potassium (Losartan Potassium 50 Mg Tab) 50 mg PO QAM FELIBERTO Stop: 02/24/21 08:59 Last Admin: 01/31/21 08:27 Dose: 50 mg Documented by: Montelukast Sodium (Montelukast Sodium 10 Mg Tablet) 10 mg PO [facility] Stop: 02/23/21 20:59 Last Admin: 01/30/21 21:01 Dose: 10 mg Documented by: Ondansetron HCl (Ondansetron Inj 2 Mg/Ml 2 Ml Vial) 4 mg IV Q4H PRN PRN Reason: Nausea And Vomiting Stop: 02/23/21 20:42 Last Admin: 01/30/21 10:00 Dose: 4 mg Documented by: Pantoprazole Sodium (Pantoprazole 40 Mg Tab) 40 mg PO [facility] Stop: 02/24/21 08:59 Last Admin: 01/31/21 08:27 Dose: 40 mg Documented by: Simvastatin (Simvastatin 20 Mg Tab) 20 mg PO [facility] Stop: 02/23/21 20:59 Last Admin: 01/30/21 21:01 Dose: 20 mg Documented by:
[2021-01-31] MEDS: SIMVASTATIN 20 MG TAB PO SCH (20:56)
[2021-01-31] MEDS: MONTELUKAST SODIUM 10 MG TABLET PO SCH (20:56)
[2021-02-01 07:53] LABS: Basophils # (auto) 0.01 K/uL (0-0.2); Basophils % (auto) 0.1 %; Eosinophils # (auto) 0.13 K/uL (0-0.5); Hematocrit (blood only) 43.7 % (42-52); Hemoglobin 14.7 g/dL (14.0-18.0); Immature Granulocytes # (auto) 0.12 K/uL (0.00-0.02); Immature Granulocytes % (auto) 0.9 %; Lymphocytes % (auto) 12.4 %; Mean Corpuscular Hgb Conc 33.6 g/dL (32-36); Mean Corpuscular Volume 86.2 fL (80-100); Mean Platelet Volume 10.3 fL (7.4-10.4); Monocytes # (auto) 1.51 K/uL (0.11-0.59); Monocytes % (auto) 11.7 %; Neutrophils # (auto) 9.55 K/uL (1.4-6.5); Neutrophils % (auto) 73.9 %; Platelet Count 284 K/uL (130-400); RDW Coefficient of Variation 13.3 % (11.5-14.5); RDW Standard Deviation 42.1 fL (36.4-46.3); Red Blood Count 5.07 M/uL (4.7-6.1); White Blood Count 12.92 K/uL (4.8-10.8)
[2021-02-01 08:25] LABS: Creatinine Clr Calc Pharmacy 134.4 ml/min; Est GFR (African American) 123.7 ml/min; Est GFR (Non-African American) 106.7 ml/min; Potassium 4.1 mmol/L (3.5-5.1)
[2021-02-01] MEDS: LOSARTAN POTASSIUM 50 MG TAB PO SCH (09:25)
[2021-02-01] MEDS: PANTOprazole 40 MG TAB PO SCH (09:25)
[2021-02-01] MEDS: ENOXAPARIN INJ 40 MG/0.4 ML SYR SQ SCH (09:25)
[2021-02-01] MEDS: guaiFENesin 600 MG TABCR PO SCH (09:25)
[2021-02-01] MEDS: dexAMETHasone 10 MG in SYRINGE 0 ML IV SCH (09:37)
--- NOTE | 2021-02-01 13:06 | Hospitalist Progress Note ---
Date of Service February 01, 2021 Assessment & Plan (1) Acute respiratory failure with hypoxia: (2) Pneumonia due to 2019-nCoV: (3) Obesity (BMI 30-39.9): (4) GERD (gastroesophageal reflux disease): Plan: 40-year-old male with PMH of HTN, HLD, obesity, GERD, seasonal allergies presents to the ER 01/24 with respiratory signs and symptoms [shortness of breath, intermittent fever, sweats, chills, headaches, body aches] since January 18, he was tested positive on January 29. Is being managed for acute hypoxic respiratory failure secondary to pneumonia due to COVID-19 virus. #. COVID 19 Pneumonia: #. Acute hypoxic respiratory failure Did not receive the Covid vaccine COVID-19 positive on Jan 21, repeat test here positive Presenting AST minimally elevated at 63, other liver enzymes WNL, LDH elevated at 522, CRP 11.3, ferritin 4479.4, D-dimer 1650 Covid markers trending down. Admitting CXR: Diffuse bilateral airspace opacities which are favored to represent pneumonia with or without aspiration/atelectasis. Admitting CTA CTA : Bilateral groundglass and consolidative opacities compatible with history of viral pneumonia. No evidence of pulmonary embolism. Patient was on 2 to 3 L nasal cannula oxygen at presentation, requiring up to 40 L oxygen, down to 6 L on 01/27 and again back up to 30 L on 01/28. Prone as able, continue with flutter valve/incentive spirometry/nebulization/ remdesivir 01/24/dexamethasone 01/24/daily lab monitoring/clinical monitoring. Lasix as needed to keep patient on the dry side. Monitor I's and O's. - 3.8 L to date. Pulmonology on board: DC CPAP. Increased Decadron to 10 mg daily 01/25. Repeat CRP down trended->patient did not qualify for Tocilizumab. Has been receiving small doses of Lasix to keep him on the dry side Use of spirometry and flutter valve as advised Clinically a lot better today and has been requiring about 1 to 2 L liters of oxygen to maintain saturation Was advised to increase ambulation-possible discharge tomorrow following 2 steps O2 saturation test Clinically much better He underwent to a steps O2 saturation test and will require 2 L of nasal cannula oxygen continuously Denies any more cough Will be discharged home this afternoon #. HTN (hypertension): - Cont losartan 50 mg daily, bp stable #. Hyperlipidemia: - Cont simvastatin #. GERD (gastroesophageal reflux disease): -Continue protonix daily #. Hypokalemia: - K 3.4 at presentation, replaced, monitor daily. #. Obesity (BMI 30-39.9): - BMI of 39.7, diet and exercise to be encouraged upon discharge - HH diet #. DVT PPx - teds, scds, lovenox subq daily CODE: Full code Dispo: From home, likely to remain in the hospital x for the next few days, to be decided once patient starts to show improvement. Discharged home this afternoon Admission and Anticipated Discharge Date Admission Date: January 24, 2021 Subjective 01/30/2021 The patient was seen and examined in telemetry unit and in the Covid room He has been feeling much better at rest Requiring 6 L of oxygen at rest and desaturates quite easily with ambulation Has not had sleep for a long time and that is making him tired 01/31/2021 The patient was seen and examined in telemetry unit and in the Covid room He has been feeling much better today and has been requiring about 2 L of oxygen to maintain saturation Denies any cough and/or shortness of breath at rest 02/01/2021 The patient was seen and examined in telemetry unit and in the Covid room He has been feeling much better and requiring 2 L of oxygen to maintain saturation since yesterday He denies any cough and he has had the 2 steps O2 saturation test and requires He wants to go home today and will be sent home this afternoon Review of Systems Review of Systems: All systems reviewed and are unremarkable except as noted below Physical Exam Physical Exam: Sitting on a chair without any acute distress Constitutional: well developed, well nourished, + ill appearing and + obese Eyes: PERRL, conjunctivae normal, anicteric sclerae ENMT: external ear and nose normal, oropharynx normal Neck: trachea midline, no thyromegaly Respiratory: + cough; no respiratory distress (At rest) Auscultation: + diminished lung sounds; no crackles (At the bases) Cardiovascular: Rate/Rhythm: regular rate and regular rhythm; not tachycardic Heart Sounds: normal S1 and normal S2; no murmur Extremities: no edema Gastrointestinal (Abdomen): Inspection/Auscultation: normal bowel sounds; abdomen not distended Percussion/Palpation: abdomen soft; abdomen nontender Musculoskeletal: No acute arthritis in any joint Neurologic: Alert, awake and oriented x3. No focal sensory or motor deficit appreciated Results & Data Results & Data ([facility]) Vital Signs (Past 12 Hours) Vital Signs Temp Pulse Pulse Pulse Pulse Pulse Resp 02/01/21 12:05 36.5 C 70 19 02/01/21 09:03 88 88 87 85 02/01/21 07:49 36.6 C 66 20 02/01/21 03:51 37.0 C 59 L 18 Resp Resp Resp Resp BP Pulse Ox Pulse Ox 02/01/21 12:05 102/69 92 02/01/21 09:03 18 18 18 18 92 02/01/21 07:49 107/68 90 02/01/21 03:51 104/71 94 Pulse Ox Pulse Ox Pulse Ox 02/01/21 12:05 02/01/21 09:03 91 93 86 L 02/01/21 07:49 02/01/21 03:51 Laboratory Results Short CBC 02/01/21 Range/Units 07:23 WBC 12.92 H (4.8-10.8) K/uL Hgb 14.7 (14.0-18.0) g/dL Hct 43.7 (42-52) % Plt Count 284 (130-400) K/uL BMP 02/01/21 07:23 Sodium 135 L Potassium 4.1 Chloride 104 Carbon Dioxide 25 BUN 28 H Creatinine 0.88 Glucose 106 H Calcium 8.0 L Medications Administered Current Inpatient Medications Acetaminophen (Acetaminophen 325 Mg Tab) 650 mg PO Q4H PRN PRN Reason: Moderate Pain Stop: 02/23/21 20:42 Last Admin: 01/31/21 08:26 Dose: 650 mg Documented by: Albuterol (Albuterol Hfa 8 Gm Inhaler) 2 puffs INH Q4H PRN PRN Reason: shortness of breath or wheezing Stop: 02/23/21 20:42 Albuterol (Albut/Ipratrop 3mg/0.5mg Neb 3 Ml Vial) 3 ml NEB Q4R PRN PRN Reason: Shortness Of Breath Or Wheezing Stop: 02/23/21 20:42 Last Admin: 01/28/21 23:04 Dose: 3 ml Documented by: Calcium Carbonate (Calcium Carbonate 500 Mg Chewable Tab) 1,500 mg PO Q4 PRN PRN Reason: Indigestion Stop: 03/01/21 18:53 Last Admin: 01/30/21 21:03 Dose: 1,500 mg Documented by: Enoxaparin Sodium (Enoxaparin Inj 40 Mg/0.4 Ml Syr) 40 mg SQ QAM [facility] Stop: 02/24/21 08:59 Last Admin: 02/01/21 09:25 Dose: 40 mg Documented by: Guaifenesin (Guaifenesin 600 Mg Tabcr) 1,200 mg PO Q12 FELIBERTO Stop: 02/23/21 20:59 Last Admin: 02/01/21 09:25 Dose: 1,200 mg Documented by: Dexamethasone 10 mg/ Syringe 2.5 mls @ 1 mls/min IV DAILY FELIBERTO Stop: 02/03/21 09:03 Last Admin: 02/01/21 09:37 Dose: 1 mls/min Documented by: Lorazepam (Lorazepam 0.5 Mg Tab) 0.25 mg PO HS PRN PRN Reason: Anxiety Stop: 03/01/21 13:29 Losartan Potassium (Losartan Potassium 50 Mg Tab) 50 mg PO QAM [facility] Stop: 02/24/21 08:59 Last Admin: 02/01/21 09:25 Dose: 50 mg Documented by: Montelukast Sodium (Montelukast Sodium 10 Mg Tablet) 10 mg PO HS [facility] Stop: 02/23/21 20:59 Last Admin: 01/31/21 20:56 Dose: 10 mg Documented by: Ondansetron HCl (Ondansetron Inj 2 Mg/Ml 2 Ml Vial) 4 mg IV Q4H PRN PRN Reason: Nausea And Vomiting Stop: 02/23/21 20:42 Last Admin: 01/30/21 10:00 Dose: 4 mg Documented by: Pantoprazole Sodium (Pantoprazole 40 Mg Tab) 40 mg PO QAM [facility] Stop: 02/24/21 08:59 Last Admin: 02/01/21 09:25 Dose: 40 mg Documented by: Simvastatin (Simvastatin 20 Mg Tab) 20 mg PO HS [facility] Stop: 02/23/21 20:59 Last Admin: 01/31/21 20:56 Dose: 20 mg Documented by:
--- NOTE | 2021-02-02 07:21 | Discharge Summary ---
Date of Service February 02, 2021 Admission HPI Per Admitting Provider This is a 40 yo F with PMHx of HTN, HLD, obesity with BMI of 39.7, GERD, seasonal allergies who presents to the ER with multiple respiratory symptoms since Jan 18. 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 He did not get vaccinated for COVID-19. Symptoms include worsening shortness of breath, fever 101-103.7 with max 2 days ago, sweats, chills, headache, and body aches. He was taking ibuprofen to attempt to break the fever but wasn't helping. Poor appetite, unable to tolerate liquids, is consuming maybe 15-20 oz daily. He admits to loss of taste and smell. Has been nauseous without vomiting and c/o diarrhea nearly daily. Pt reports chest pain at baseline and has been seen in the hospital before for coughing from allergies and causes his ribs to be out of place. He denies cardiac heart issues in the past. He reports presenting as an outpatient [facility] 3 days ago and rapid Covid test was positive on the . Weighs 270 at baseline. Patient is hypoxic with O2 sats at 88% on room air, elevated D-dimer, febrile with a T-max of 38.7. He also notes his is here in the ER for same issues. Admission Exam Per Admitting Provider GENERAL: Alert and oriented x3. NAD, on 2L. HEENT: No pallor, no icterus. Pupils equal, round and reactive to light. Oral mucosa moist. NECK: No JVD, no neck masses. HEART: S1 and S2 heard. Regular rate and rhythm. No murmur, no gallop. RESPIRATORY SYSTEM: Normal AP diameter. No accessory muscle use. No wheezing, diffuse and bilateral crackles with diminished breath sounds. ABDOMEN: Soft, bowel sounds present, nontender, no distention. CENTRAL NERVOUS SYSTEM: Alert and oriented x3. No facial droop. Speech is clear. Obeys simple commands. Moves extremities. Principal Diagnosis Acute respiratory failure with hypoxia, pneumonia due to COVID-19 virus infection Discharge Exam Constitutional well developed, well nourished, + ill appearing and + obese Eyes PERRL, conjunctivae normal, anicteric sclerae ENMT external ear and nose normal, oropharynx normal Neck trachea midline, no thyromegaly Respiratory + cough; no respiratory distress (At rest) Auscultation: + diminished lung sounds; no crackles (At the bases) Cardiovascular Rate/Rhythm: regular rate and regular rhythm; not tachycardic Heart Sounds: normal S1 and normal S2; no murmur Extremities: no edema Gastrointestinal (Abdomen) Inspection/Auscultation: normal bowel sounds; abdomen not distended Percussion/Palpation: abdomen soft; abdomen nontender Discharge Data Allergies Allergy/AdvReac Type Severity Reaction Status Date / Time No Known Allergies Allergy Unverified 01/24/21 10:10 Consultations 01/24/21 11:15 ED Decision to Admit Stat 01/25/21 07:18 Consult Pulmonology Routine Ordered Studies 01/24/21 10:52 CT angio chest PE protocol Stat Hospital Course (1) Acute respiratory failure with hypoxia: (2) Pneumonia due to 2019-nCoV: (3) Obesity (BMI 30-39.9): (4) GERD (gastroesophageal reflux disease): 40-year-old male with PMH of HTN, HLD, obesity, GERD, seasonal allergies presents to the ER 01/24 with respiratory signs and symptoms [shortness of breath, intermittent fever, sweats, chills, headaches, body aches] since January 18, he was tested positive on January 29. Is being managed for acute hypoxic respiratory failure secondary to pneumonia due to COVID-19 virus. #. COVID 19 Pneumonia: #. Acute hypoxic respiratory failure Did not receive the Covid vaccine COVID-19 positive on Jan 21, repeat test here positive Presenting AST minimally elevated at 63, other liver enzymes WNL, LDH elevated at 522, CRP 11.3, ferritin 4479.4, D-dimer 1650 Covid markers trending down. Admitting CXR: Diffuse bilateral airspace opacities which are favored to represent pneumonia with or without aspiration/atelectasis. Admitting CTA CTA : Bilateral groundglass and consolidative opacities compatible with history of viral pneumonia. No evidence of pulmonary embolism. Patient was on 2 to 3 L nasal cannula oxygen at presentation, requiring up to 40 L oxygen, down to 6 L on 01/27 and again back up to 30 L on 01/28. Prone as able, continue with flutter valve/incentive spirometry/nebulization/ remdesivir 01/24/dexamethasone 01/24/daily lab monitoring/clinical monitoring. Lasix as needed to keep patient on the dry side. Monitor I's and O's. - 3.8 L to date. Pulmonology on board: DC CPAP. Increased Decadron to 10 mg daily 01/25. Repeat CRP down trended->patient did not qualify for Tocilizumab. Has been receiving small doses of Lasix to keep him on the dry side Use of spirometry and flutter valve as advised Clinically a lot better today and has been requiring about 1 to 2 L liters of oxygen to maintain saturation Was advised to increase ambulation-possible discharge tomorrow following 2 steps O2 saturation test Clinically much better He underwent to a steps O2 saturation test and will require 2 L of nasal cannula oxygen continuously Denies any more cough Will be discharged home this afternoon #. HTN (hypertension): - Cont losartan 50 mg daily, bp stable #. Hyperlipidemia: - Cont simvastatin #. GERD (gastroesophageal reflux disease): -Continue protonix daily #. Hypokalemia: - K 3.4 at presentation, replaced, monitor daily. #. Obesity (BMI 30-39.9): - BMI of 39.7, diet and exercise to be encouraged upon discharge - HH diet #. DVT PPx - teds, scds, lovenox subq daily CODE: Full code Dispo: From home, likely to remain in the hospital x for the next few days, to be decided once patient starts to show improvement. Discharged home this afternoon Total Time Total Time Spent Total Time Spent (In Minutes): 35 minutes Discharge Plan Discharge Items Patient Disposition: Home - Self-Care Reason For Visit: COVID 19, ACUTE RESPIRATORY FAILURE WITH HYPOXIA Discharge Diagnosis: Acute respiratory failure with hypoxia, pneumonia due to COVID-19 virus infection Condition on Discharge: Fair Activity: Resume your previous activity Activity Comment: Take it easy for the next few days to few weeks Non-emergency contact: Primary Care Provider Call non-emergency contact if: you have any medication questions and your symptoms worsen Follow-up/Referrals: Guero Huerta MD [Primary Care Provider] - (Date & Time 02/07/2021 11:00 AM Provider Guero Huerta III, MD Department [facility] PLEASE NOTE THAT THIS IS A TELEHEALTH APPOINTMENT. PLEASE FOLLOW THE INSTRUCTIONS PROVIDED IN YOUR EMAIL. IF YOU HAVE ANY QUESTIONS REGARDING THIS APPOINTMENT, PLEASE CALL ) Diet: Heart Healthy Addtl Attending Provider Instructions: Please take precaution to avoid fall Take your medications as advised You will need to be in isolation for the next 4 days as follows; Home Isolation COVID-19 Instructions The following information about Home Isolation is from the CDC Website: https://www.cdc.gov/coronavirus/2019-ncov/hcp/rcyjhjlw-ogixzft-fzcmhm.html Stay home except to get medical care People who are mildly ill with COVID-19 are able to isolate at home during their illness. You should restrict activities outside your home, except for getting medical care. Do not go to work, school, or public areas. Avoid using public transportation, ride-sharing, or taxis. Separate yourself from other people and animals in your home People: As much as possible, you should stay in a specific room and away from other people in your home. Also, you should use a separate bathroom, if available. Animals: You should restrict contact with pets and other animals while you are sick with COVID-19, just like you would around other people. Although there have not been reports of pets or other animals becoming sick with COVID-19, it is still recommended that people sick with COVID-19 limit contact with animals until more information is known about the virus. When possible, have another member of your household care for your animals while you are sick. If you are sick with COVID-19, avoid contact with your pet, including petting, snuggling, being kissed or licked, and sharing food. If you must care for your pet or be around animals while you are sick, wash your hands before and after you interact with pets and wear a face mask. Call ahead before visiting your doctor If you have a medical appointment, call the healthcare provider and tell them that you have or may have COVID-19. This will help the healthcare providers office take steps to keep other people from getting infected or exposed. Wear a face mask You should wear a face mask when you are around other people (e.g., sharing a room or vehicle) or pets and before you enter a healthcare providers office. If you are not able to wear a face mask (for example, because it causes trouble breathing), then people who live with you should not stay in the same room with you, or they should wear a face mask if they enter your room. Cover your coughs and sneezes Cover your mouth and nose with a tissue when you cough or sneeze. Throw used tissues in a lined trash can. Immediately wash your hands with soap and water for at least 20 seconds or, if soap and water are not available, clean your hands with an alcohol-based hand director of financial aid that contains at least 60% alcohol. Clean your hands often Wash your hands often with soap and water for at least 20 seconds, especially after blowing your nose, coughing, or sneezing; going to the bathroom; and before eating or preparing food. If soap and water are not readily available, use an alcohol-based hand director of financial aid with at least 60% alcohol, covering all surfaces of your hands and rubbing them together until they feel dry. Soap and water are the best option if hands are visibly dirty. Avoid touching your eyes, nose, and mouth with unwashed hands. Avoid sharing personal household items You should not share dishes, drinking glasses, cups, eating utensils, towels, or bedding with other people or pets in your home. After using these items, they should be washed thoroughly with soap and water. Clean all high-touch surfaces everyday High touch surfaces include counters, tabletops, doorknobs, bathroom fixtures, toilets, phones, keyboards, tablets, and bedside tables. Also, clean any surfaces that may have blood, stool, or body fluids on them. Use a household cleaning spray or wipe, according to the label instructions. Labels contain instructions for safe and effective use of the cleaning product including precautions you should take when applying the product, such as wearing gloves and making sure you have good ventilation during use of the product. Monitor your symptoms Seek prompt medical attention if your illness is worsening (e.g., difficulty breathing).Beforeseeking care, call your healthcare provider and tell them that you have, or are being evaluated for, COVID-19. Put on a face mask before you enter the facility. These steps will help the healthcare providers office to keep other people in the office or waiting room from getting infected or exposed. Ask your healthcare provider to call the local or state health department. Persons who are placed under active monitoring or facilitated self- monitoring should follow instructions provided by their local health department or occupational health professionals, as appropriate. When working with your local health department check their available hours. If you have a medical emergency and need to call 911, notify the dispatch personnel that you have, or are being evaluated for COVID-19. If possible, put on a face mask before emergency medical services arrive. Discontinuing home isolation Patients with confirmed COVID-19 should remain under home isolation precautions until the risk of secondary transmission to others is thought to be low. The decision to discontinue home isolation precautions should be made on a [id number] basis, in consultation with healthcare providers and state and local health departments. Pending Studies at Discharge: No Stand-Alone Forms: My [facility], Work/School Release, Smoking Cessation Medications and DC Order Prescriptions: New dexamethasone 6 mg tablet 6 mg PO DAILY Qty: 2 RF: 0 Continued losartan 50 mg tablet 50 mg PO QAM RF: 0 pantoprazole 40 mg tablet,delayed release (DR/EC) 40 mg PO QAM RF: 0 simvastatin 20 mg tablet 20 mg PO HS RF: 0 montelukast 10 mg tablet 10 mg PO HS RF: 0 albuterol sulfate 90 mcg/actuation HFA aerosol inhaler 2 puffs INH Q4H PRN (Reason: shortness of breath or wheezing) Qty: 8 RF: 0 albuterol sulfate 0.63 mg/3 mL Solution For Nebulization 0.63 mg INHALATION QID PRN (Reason: SOB) RF: 0 Discharge Orders: Discharge Order (Routine); Ordered 02/01/21 Ordered By: Arleen Villegas/Other Patient Handouts: COVID-19 Home Care, Proning COVID-19 Admission Data Admit Date/Time: 01/24/21 11:30 Attending Provider: Arleen Whitlock Admit Provider: Mary Hazel Primary Care Provider: Guero Huerta Other Providers: Mary Hazel ; Jazmyne Aj Other Interventions: Discharge Summary Assessment (RN) Last Done: 02/01/21 13:42
== END 2021-02-01 15:09 | disposition home or self-care (01) | DRG 177 ==
LOC: ED 09:23 → SUATTDRO 11:30 → 2S 11:30